=== PATIENT | female | born 1955 | race Caucasian/White ===

== ENCOUNTER → 2017-03-03 | Outpatient (CLI) | payer OTHER ==
--- NOTE | 2017-03-06 08:04 | MM ---
Reason for exam: screening (asymptomatic). Last mammogram was performed 1 year and 1 month ago. History: Patient is postmenopausal. Family history of breast cancer in sister at age 50 and breast cancer in grandmother at age 68. Took estrogen for 10 years beginning at age 37. Physical Findings: A clinical breast exam by your physician is recommended on an annual basis and results should be correlated with mammographic findings. MG Screening Mammo w CAD Bilateral CC and MLO view(s) were taken. Prior study comparison: January 24, 2016, bilateral MG 3d screening mammo w/cad. November 03, 2014, bilateral MG screening mammo w CAD. There are scattered fibroglandular densities. There is no discrete abnormality. No significant changes when compared with prior studies. ASSESSMENT: Negative, BI-RAD 1 RECOMMENDATION: Routine screening mammogram of both breasts in 1 year.
== END | disposition home or self-care (01) ==
LOC: RADMAMWWP 13:41
PROVIDERS: ATTEND Family Medicine
DX: Z12.31 Encounter for screening mammogram for malignant neoplasm of breast (principal)

== ENCOUNTER → 2018-03-18 | Outpatient (CLI) | payer BC ==
--- NOTE | 2018-03-19 11:08 | MM ---
Reason for exam: screening (asymptomatic). Last mammogram was performed 1 year ago. History: Patient is postmenopausal. Family history of breast cancer in sister at age 50 and breast cancer in grandmother at age 68. Took estrogen for 10 years beginning at age 37. Physical Findings: A clinical breast exam by your physician is recommended on an annual basis and results should be correlated with mammographic findings. MG 3D Screening Mammo W/Cad Bilateral CC and MLO view(s) were taken. Prior study comparison: March 03, 2017, bilateral MG screening mammo w CAD. January 24, 2016, bilateral MG 3d screening mammo w/cad. There are scattered fibroglandular densities. There is no discrete abnormality. No significant changes when compared with prior studies. ASSESSMENT: Negative, BI-RAD 1 RECOMMENDATION: Routine screening mammogram of both breasts in 1 year.
== END | disposition home or self-care (01) ==
LOC: RADMAMWWP 15:34
PROVIDERS: ATTEND Family Medicine
DX: Z12.31 Encounter for screening mammogram for malignant neoplasm of breast (principal)
CPT/HCPCS: 77063; 77067

== ENCOUNTER → 2019-04-11 | Outpatient (CLI) | payer BC ==
[2019-04-11 10:50] LABS: Basophils # (A) 0.1 k/uL (0-0.2); Basophils % (A) 1 %; Eosinophils # (A) 0.2 k/uL (0-0.7); Eosinophils % (A) 1 %; HCT 45.5 % (34.0-46.0); HGB 15.1 gm/dL (11.4-16.0); Lymphocytes # (A) 2.2 k/uL (1.0-4.8); Lymphocytes % (A) 19 %; MCH 30.3 pg (25.0-35.0); MCHC 33.1 g/dL (31.0-37.0); MCV 91.7 fL (80.0-100.0); Mean Platelet Volume 6.6; Monocytes # (A) 0.6 k/uL (0-1.0); Monocytes % (A) 5 %; Neutrophils # (A) 8.5 k/uL (1.3-7.7); Neutrophils % (A) 73 %; Platelet Count 236 k/uL (150-450); RBC 4.97 m/uL (3.80-5.40); RDW 12.6 % (11.5-15.5); WBC 11.6 k/uL (3.8-10.6)
[2019-04-11 17:37] LABS: African American GFR (CKD) 68.9 (60.0-200.0); Albumin 4.6 g/dL (3.80-4.90); Albumin/Globulin Ratio 2.3 (1.60-3.17); Anion Gap 5.9 mmol/L (4.00-12.00); Calcium 9.8 mg/dL (8.7-10.3); Carbon Dioxide 30.1 mmol/L (21.6-31.8); Chol/HDL Ratio 5.86; LDL Cholesterol,Calculated 156.4 mg/dL (0.0-131.0); Potassium 4.6 mmol/L (3.5-5.5); Total Bilirubin 0.6 mg/dL (0.3-1.2); Total Protein 6.6 g/dL (6.2-8.2); VLDL Calculation 47.6 mg/dL (5.00-40.00)
[2019-04-11 17:48] LABS: T4, Free (Free Thyroxine) 0.9 ng/dL (0.80-1.80)
[2019-04-11 18:10] LABS: Iron Saturation 28.99 (12.00-45.00)
[2019-04-11 18:18] LABS: Ferritin 90.8 ng/mL (10.0-291.0)
[2019-04-11 18:27] LABS: Folate, Serum 10.3 ng/mL
== END | disposition home or self-care (01) ==
LOC: LABWHC1 09:45
PROVIDERS: ATTEND Family Medicine
DX: E11.3211 Type 2 diabetes mellitus with mild nonproliferative diabetic retinopathy with macular edema, right eye (principal); L65.9 Nonscarring hair loss, unspecified
CPT/HCPCS: 36415; 80053; 80061; 82306; 82607; 82728; 82746; 83540; 83550; 84439; 84443; 85025; 86038

== ENCOUNTER → 2019-05-02 | Outpatient (CLI) | payer BC ==
--- NOTE | 2019-05-02 14:26 | MM ---
Reason for exam: screening (asymptomatic). Last mammogram was performed 1 year and 1 month ago. History: Patient is postmenopausal. Family history of breast cancer in sister at age 50 and breast cancer in grandmother at age 68. Took estrogen for 10 years beginning at age 37. Physical Findings: A clinical breast exam by your physician is recommended on an annual basis and results should be correlated with mammographic findings. MG 3D Screening Mammo W/Cad Bilateral CC and MLO view(s) were taken. Prior study comparison: March 18, 2018, bilateral MG 3d screening mammo w/cad. March 03, 2017, bilateral MG screening mammo w CAD. There are scattered fibroglandular densities. No suspicious abnormality. No significant changes when compared with prior studies. ASSESSMENT: Negative, BI-RAD 1 RECOMMENDATION: Routine screening mammogram of both breasts in 1 year.
== END | disposition home or self-care (01) ==
LOC: RADMAMWWP 12:52
PROVIDERS: ATTEND Family Medicine
DX: Z12.31 Encounter for screening mammogram for malignant neoplasm of breast (principal)
CPT/HCPCS: 77063; 77067

== ENCOUNTER 2020-02-12 15:11 | Emergency (ER) | payer BC, OTHER ==
[2020-02-12 15:23] VITALS: RESP 18; TEMP 97.8
--- NOTE | 2020-02-12 15:57 | ED ---
General Adult HPI - General Chief complaint: Extremity Injury, Lower Stated complaint: Poss blood clot Time Seen by Provider: 02/12/20 15:23 Source: patient, RN notes reviewed Mode of arrival: ambulatory Limitations: no limitations - History of Present Illness Initial comments: Patient is a pleasant [age]-year-old female presenting to the emergency dep artment with concern for possible blood clot. Patient states she struck her left leg on a chair one week ago. Patient has had mild discomfort. Patient states symptoms started to worsen yesterday. Patient has noticed some swelling and tenderness to touch. Patient also noticed some mild redness. No history of similar symptoms previously. No chest pain or dyspnea. - Related Data Home Medications Medication Instructions Recorded Confirmed Calcium Carbonate/Vitamin D3 1 tab PO DAILY 12/01/14 01/31/15 [Calcium 600 + Vit D Tablet] Omeprazole [PriLOSEC] 20 mg PO AC-BRKFST 12/01/14 01/31/15 Aspirin 325 mg PO DAILY 01/31/15 01/31/15 Glucosamine Sulfate 500 mg PO DAILY 01/31/15 01/31/15 Vit A/Vit C/Vit E/Zinc/Copper 1 cap PO DAILY 01/31/15 01/31/15 [ICAPS SOFTGEL] Previous Rx's Medication Instructions Recorded Ciprofloxacin HCl [Cipro] 500 mg PO Q12HR #20 tablet 01/31/15 Phenazopyridine HCl [Pyridium] 100 mg PO TID #6 tab 01/31/15 Cephalexin [Keflex] 500 mg PO TID #21 cap 02/12/20 Allergies Allergy/AdvReac Type Severity Reaction Status Date / Time codeine Allergy N & V. Verified 02/12/20 15:23 SHAKING. Review of Systems ROS Statement: Those systems with pertinent positive or pertinent negative responses have been documented in the HPI. ROS Other: All systems not noted in ROS Statement are negative. Constitutional: Denies: fever Eyes: Denies: eye pain ENT: Denies: ear pain Respiratory: Denies: cough, dyspnea Cardiovascular: Denies: chest pain Endocrine: Denies: fatigue Gastrointestinal: Denies: abdominal pain Genitourinary: Denies: dysuria Musculoskeletal: Denies: back pain Skin: Denies: rash Neurological: Denies: weakness Past Medical History Past Medical History: Diabetes Mellitus, GERD/Reflux History of Any Multi-Drug Resistant Organisms: None Reported Past Surgical History: Back Surgery, Bladder Surgery, Cholecystectomy, Hernia Repair, Hysterectomy, Orthopedic Surgery, Tonsillectomy Additional Past Surgical History / Comment(s): rectal seal Past Psychological History: No Psychological Hx Reported Smoking Status: Current every day smoker Past Alcohol Use History: Occasional Past Drug Use History: None Reported General Exam Limitations: no limitations General appearance: alert, in no apparent distress Head exam: Present: normocephalic Eye exam: Present: normal appearance Neck exam: Present: normal inspection Respiratory exam: Present: normal lung sounds bilaterally Cardiovascular Exam: Present: regular rate, normal rhythm GI/Abdominal exam: Present: soft. Absent: tenderness Extremities exam: Present: other (Left upper lateral calf with area proximally 4 x 4 centimeters of mild swelling and mild erythema. There is moderate tenderness.) Neurological exam: Present: alert Psychiatric exam: Present: normal affect, normal mood Skin exam: Present: erythema Course Vital Signs 02/12/20 02/12/20 02/12/20 15:19 15:22 16:22 Temperature 97.8 F Pulse Rate 75 Respiratory 18 18 18 Rate Blood Pressure 113/72 O2 Sat by Pulse 97 Oximetry 02/12/20 16:52 Temperature Pulse Rate 73 Respiratory 18 Rate Blood Pressure 105/60 O2 Sat by Pulse 95 Oximetry Medical Decision Making - Medical Decision Making Patient reevaluated and updated. - Radiology Data Radiology results: image reviewed (Ultrasound shows no DVT, correlate for superficial phlebitis.) Disposition Clinical Impression: Superficial thrombophlebitis of left leg Disposition: HOME SELF-CARE Condition: Stable Instructions (If sedation given, give patient instructions): Superficial Throm bophlebitis (ED) Additional Instructions: Daily aspirin. Please follow-up with primary care physician in the next couple days for recheck. Prescription sent to your pharmacy. Return for increased pain, swelling, redness, chest pain or difficulty breathing, worsening symptoms or other concerns. Prescriptions: Cephalexin [Keflex] 500 mg PO TID #21 cap Is patient prescribed a controlled substance at d/c from ED?: No Referrals: Dillan Díaz MD [Primary Care Provider] - 1-2 days Time of Disposition: 17:36
--- NOTE | 2020-02-12 16:44 | US ---
EXAMINATION TYPE: US venous doppler duplex LE LT DATE OF EXAM: 02/12/2020 4:17 PM COMPARISON: NONE CLINICAL HISTORY: pain and swelling. Left leg skin redness and swelling over varicose veins anteriorl y just at below knee level and after trauma to this leg 1 week ago; bilateral varicose veins. SIDE PERFORMED: Left TECHNIQUE: The lower extremity deep venous system is examined utilizing real time linear array sonog soumya with graded compression, doppler sonography and color-flow sonography. VESSELS IMAGED: ) Common Femoral Vein Deep Femoral Vein Greater Saphenous Vein * Femoral Vein Popliteal Vein Small Saphenous Vein * Proximal Calf Veins (* superficial vessels) Left Leg: Negative for DVT. Dilated and tortuous superficial veins are noted at patient's area of p ain and skin redness, suggesting superficial phlebitis. These Superficial Veins are patent and compre ss here. IMPRESSION: No evidence of deep vein thrombosis. There are some superficial varicose veins.
[2020-02-12 17:57] VITALS: BP 108/74; PULSE 68
== END 2020-02-12 17:50 | disposition home or self-care (01) ==
LOC: EC 15:11
DX: I80.02 Phlebitis and thrombophlebitis of superficial vessels of left lower extremity (principal); F17.200 Nicotine dependence, unspecified, uncomplicated; E11.9 Type 2 diabetes mellitus without complications; K21.9 Gastro-esophageal reflux disease without esophagitis; Z79.84 Long term (current) use of oral hypoglycemic drugs; Z79.899 Other long term (current) drug therapy; Z88.5 Allergy status to narcotic agent
CPT/HCPCS: 99283

== ENCOUNTER 2024-11-08 21:40 | Inpatient (IN) | payer MEDICARE, OTHER ==
--- NOTE | 2024-11-08 22:17 | ED ---
General Adult HPI - General Chief complaint: Fall Stated complaint: Fall Time Seen by Provider: 11/08/24 21:51 Source: patient, EMS, RN notes reviewed, old records reviewed Mode of arrival: EMS Limitations: no limitations - History of Present Illness Initial comments: 69 old female presents status post slip and fall in the bathtub with left-sided chest wall pain. Patient does believe she lost consciousness. She did not remember hitting her head. No anticoagulation. Her chief and only complaint at this time is left lateral chest wall pain which is severe. She was given morphine by paramedics with minimal improvement. She is having a hard time taking a deep breath secondary to pain. No abdominal pain. No extremity injury. - Related Data Home Medications Medication Instructions Recorded Confirmed Calcium Carbonate/Vitamin D3 1 tab PO DAILY 12/01/14 01/31/15 [Calcium 600 + Vit D Tablet] Omeprazole [PriLOSEC] 20 mg PO AC-BRKFST 12/01/14 01/31/15 Aspirin 325 mg PO DAILY 01/31/15 01/31/15 Glucosamine Sulfate 500 mg PO DAILY 01/31/15 01/31/15 Vit A/Vit C/Vit E/Zinc/Copper 1 cap PO DAILY 01/31/15 01/31/15 [ICAPS SOFTGEL] Previous Rx's Medication Instructions Recorded Ciprofloxacin HCl [Cipro] 500 mg PO Q12HR #20 tablet 01/31/15 Phenazopyridine HCl [Pyridium] 100 mg PO TID #6 tab 01/31/15 Cephalexin [Keflex] 500 mg PO TID #21 cap 02/12/20 Allergies Allergy/AdvReac Type Severity Reaction Status Date / Time codeine Allergy N & V. Verified 11/08/24 21:48 SHAKING. Review of Systems ROS Statement: Those systems with pertinent positive or pertinent negative responses have been documented in the HPI. ROS Other: All systems not noted in ROS Statement are negative. Past Medical History Past Medical History: Diabetes Mellitus, GERD/Reflux History of Any Multi-Drug Resistant Organisms: None Reported Past Surgical History: Back Surgery, Bladder Surgery, Cholecystectomy, Hernia Repair, Hysterectomy, Orthopedic Surgery, Tonsillectomy Additional Past Surgical History / Comment(s): rectal seal Past Psychological History: No Psychological Hx Reported Smoking Status: Current every day smoker Past Alcohol Use History: Occasional Past Drug Use History: None Reported General Exam General appearance: alert, in no apparent distress Head exam: Present: atraumatic, normocephalic Eye exam: Present: normal appearance, PERRL ENT exam: Present: normal exam Neck exam: Present: normal inspection. Absent: tenderness, meningismus Respiratory exam: Present: chest wall tenderness, decreased breath sounds. Absent: respiratory distress Cardiovascular Exam: Present: regular rate, normal rhythm GI/Abdominal exam: Present: soft. Absent: distended, tenderness, guarding Extremities exam: Present: normal inspection, normal capillary refill. Absent: pedal edema, joint swelling, calf tenderness Neurological exam: Present: alert, oriented X3 Psychiatric exam: Present: normal affect, normal mood Skin exam: Present: warm, dry, intact. Absent: cyanosis, diaphoretic Course Vital Signs 11/08/24 21:41 Temperature 98.3 F Pulse Rate 74 Respiratory 18 Rate Blood Pressure 100/67 O2 Sat by Pulse 91 L Oximetry Medical Decision Making - Medical Decision Making Was pt. sent in by a medical professional or institution (, [facility], JITTERBUG OPERATOR, urgent care, hospital, or custodial...) When possible be specific @ -No Did you speak to anyone other than the patient for history (EMS, parent, family, police, friend...)? What history was obtained from this source @ -No Did you review nursing and triage notes (agree or disagree)? Why? @ -I reviewed and agree with nursing and triage notes Were old charts reviewed (outside hosp., previous admission, EMS record, old EKG, old radiological studies, urgent care reports/EKG's, custodial records)? Report findings @ -No old charts were reviewed Differential Diagnosis static injury from fall, left chest wall contusion, rib fracture, pneumothorax EKG interpreted by me (3pts min.). @Sinus rhythm rate of 71, [place] interval 146, QRS duration 92, QTc [address] segment changes. X-rays interpreted by me (1pt min.). @ -X-rays negative for displaced fracture, no pneumothorax. CT interpreted by me (1pt min.). @ -CT showing left posterior rib fracture 9 and 10 U/S interpreted by me (1pt. min.). @ -None done What testing was considered but not performed or refused? (CT, X-rays, U/S, labs)? Why? @ -None What meds were considered but not given or refused? Why? @ -None Did you discuss the management of the patient with other professionals (professionals i.e. , PA, JITTERBUG OPERATOR, lab, RT, psych nurse, social sciences department chair, stained glass window designer, teacher, unclaimed property officer, comp field case manager)? Give summary @ -Dr. Peng Was smoking cessation discussed for >3mins.? @ -No Was critical care preformed (if so, how long)? @ -No Were there social determinants of health that impacted care today? How? (Homelessness, low income, unemployed, alcoholism, drug addiction, transportation, low edu. Level, literacy, decrease access to med. care, [facility], rehab)? @ -No Was there de-escalation of care discussed even if they declined (Discuss DNR or withdrawal of care, Hospice)? DNR status @ -No What co-morbidities impacted this encounter? (DM, HTN, Smoking, COPD, CAD, Cancer, CVA, ARF, Chemo, Hep., AIDS, mental health diagnosis, sleep apnea, morbid obesity)? @Current smoker, asthma Was patient admitted / discharged? Hospital course, mention meds given and route, prescriptions, significant lab abnormalities, going to OR and other pertinent info. @ 69-year-old female presenting after fall in the bathtub with left-sided chest wall pain. Patient has diminished breath sounds bilaterally. Chest x-ray does not show pneumothorax. I did perform CT imaging of the chest abdomen pelvis that showed a displaced rib fracture 9 and 10 posterior left chest wall. Patient is having significant pain requiring multiple doses of IV pain medication and has shallow respiration with an oxygen saturation around 90%. She will be observed for pain control supplemental oxygen. Undiagnosed new problem with uncertain prognosis? @ -No Drug Therapy requiring intensive monitoring for toxicity (Heparin, Nitro, Insulin, Cardizem)? @ -No Were any procedures done? @ -No Diagnosis/symptom? @ -Left-sided rib fracture, intractable pain Acute, or Chronic, or Acute on Chronic? @ -Acute Uncomplicated (without systemic symptoms) or Complicated (systemic symptoms)? @ -Default Side effects of treatment? @ -No Exacerbation, Progression, or Severe Exacerbation? @ -No Poses a threat to life or bodily function? How? (Chest pain, USA, DC, pneumonia, PE, COPD, DKA, ARF, appy, cholecystitis, CVA, Diverticulitis, Homicidal, Suicidal, threat to staff... and all critical care pts) @ -Yes, hypoxia - Lab Data Result diagrams: 11/08/24 22:13 11/08/24 22:13 Lab Results 11/08/24 11/08/24 11/08/24 Range/Units 22:13 22:13 22:13 WBC 14.05 H (4.50-10.00) 10*3/uL RBC 4.68 (4.10-5.20) 10*6/uL Hgb 15.0 (12.0-15.0) g/dL Hct 43.7 (37.2-46.3) % MCV 93.4 (80.0-97.0) fL MCH 32.1 H (27.0-32.0) pg MCHC 34.3 (32.0-37.0) g/dL Plt Count 225 (140-440) 10*3/uL MPV 10.7 (9.5-12.2) fL Immature Gran % (Auto) 0.4 % Neutrophils % 71.8 % Lymphocytes % 19.4 % Monocytes % 7.0 % Eosinophils % 0.8 % Basophils % 0.6 % Immature Gran # 0.06 H (0.00-0.04) 10*3/uL Neutrophils # 10.09 H (1.80-7.70) 10*3/uL Lymphocytes # 2.72 (0.90-5.00) 10*3/uL Monocytes # 0.99 (0.20-1.00) 10*3/uL Eosinophils # 0.11 (0.04-0.35) 10*3/uL Basophils # 0.08 (0.00-0.10) 10*3/uL PT 10.9 (10.0-12.5) sec INR 1.0 (<1.2) APTT 22.5 (22.0-30.0) sec Sodium 138 (137-145) mmol/L Potassium 4.0 (3.5-5.1) mmol/L Chloride 103 (98-107) mmol/L Carbon Dioxide 26 (22-30) mmol/L Anion Gap 9 mmol/L BUN 15 (7-17) mg/dL Creatinine 0.74 (0.52-1.04) mg/dL Est GFR (CKD-EPI)AfAm >90 (>60 ml/min/1.73 sqM) Est GFR (CKD-EPI)NonAf 84 (>60 ml/min/1.73 sqM) Glucose 171 H (74-99) mg/dL Calcium 9.7 (8.4-10.2) mg/dL Total Bilirubin 0.7 (0.2-1.3) mg/dL AST 56 H (14-36) U/L ALT 47 H (4-34) U/L Alkaline Phosphatase 64 (38-126) U/L Total Protein 7.3 (6.3-8.2) g/dL Albumin 4.5 (3.5-5.0) g/dL Disposition Clinical Impression: Fall, Rib fractures Disposition: ADMITTED IP TO THIS HOSP Condition: Stable Is patient prescribed a controlled substance at d/c from ED?: No Time of Disposition: 00:53
[2024-11-08 22:41] LABS: Basophils # (A) 0.08 10*3/uL (0.00-0.10); Basophils % (A) 0.6 %; Eosinophils # (A) 0.11 10*3/uL (0.04-0.35); Eosinophils % (A) 0.8 %; HCT 43.7 % (37.2-46.3); Lymphocytes # (A) 2.72 10*3/uL (0.90-5.00); Lymphocytes % (A) 19.4 %; MCH 32.1 pg (27.0-32.0); MCHC 34.3 g/dL (32.0-37.0); MCV 93.4 fL (80.0-97.0); Mean Platelet Volume 10.7 fL (9.5-12.2); Monocytes # (A) 0.99 10*3/uL (0.20-1.00); Neutrophils # (A) 10.09 10*3/uL (1.80-7.70); Neutrophils % (A) 71.8 %; Platelet Count 225 10*3/uL (140-440); RBC 4.68 10*6/uL (4.10-5.20); RDW 12.2 % (11.5-14.5); WBC 14.05 10*3/uL (4.50-10.00)
[2024-11-08 22:55] LABS: ALT 47 U/L (4-34); AST 56 U/L (14-36); African American GFR (CKD) >90 (>60 ml/min/1.73 sqM); Albumin 4.5 g/dL (3.5-5.0); Alkaline Phosphatase 64 U/L (38-126); Anion Gap 9 mmol/L; Blood Urea Nitrogen 15 mg/dL (7-17); Calcium 9.7 mg/dL (8.4-10.2); Carbon Dioxide 26 mmol/L (22-30); Chloride 103 mmol/L (98-107); Glucose 171 mg/dL (74-99); Non-African American GFR(CKD) 84 (>60 ml/min/1.73 sqM); Sodium 138 mmol/L (137-145); Total Bilirubin 0.7 mg/dL (0.2-1.3); Total Protein 7.3 g/dL (6.3-8.2)
[2024-11-08 22:57] LABS: Partial Thromboplastin Time 22.5 sec (22.0-30.0); Prothrombin Time 10.9 sec (10.0-12.5)
[2024-11-08] MEDS: HYDROmorphone 0.5 MG/0.5 ML SYRINGE IVP STA (23:02)
[2024-11-09] MEDS: HYDROmorphone 0.5 MG/0.5 ML SYRINGE IVP STA (00:41)
--- NOTE | 2024-11-09 00:43 | CT ---
857 images EXAM: CT Chest Without Intravenous Contrast CLINICAL HISTORY: ITS.REASON CT Reason: fall/pain in left chest TECHNIQUE: Axial computed tomography images of the chest without intravenous contrast. Coronal and sagittal reconstructions are performed. CTDI is 4. 2 mGy and DLP is 317.5 mGy-cm. This CT exam was performed using one or more of the following dose reduction techniques: automated exposure control, adjustment of the mA and/or kV according to patient size, and/or use of iterative reconstruction technique. COMPARISON: No relevant prior studies available. FINDINGS: Lungs: Small amount of peripheral atelectasis bilaterally. No mass. Pleural space: Unremarkable. No pneumothorax. No significant effusion. Heart: Unremarkable. No cardiomegaly. No significant pericardial effusion. No significant coronary artery calcifications. Bones/joints: Fracture of posterior left rib #9 and 10, with maximal 2 mm displacement. ACDF of lower cervical spine. Mild lower thoracic scoliosis convex to the right. Osteopenia. Mild degenerative changes. Soft tissues: Unremarkable. Vasculature: Unremarkable. No thoracic aortic aneurysm. Lymph nodes: Unremarkable. No enlarged lymph nodes. IMPRESSION: Left lower rib fractures. EXAM: CT Abdomen and Pelvis Without Intravenous Contrast CLINICAL HISTORY: ITS.REASON CT Reason: fall/pain in left chest TECHNIQUE: Axial computed tomography images of the abdomen and pelvis without intravenous contrast. Coronal and sagittal reconstructions are performed. CTDI is 4.2 mGy and DLP is 317.5 mGy-cm. This CT exam was performed using one or more of the following dose reduction techniques: automated exposure control, adjustment of the mA and/or kV according to patient size, and/or use of iterative reconstruction technique. COMPARISON: No relevant prior studies available. FINDINGS: ABDOMEN: Liver: Unremarkable. Gallbladder and bile ducts: Cholecystectomy clips. No ductal dilation. Pancreas: Unremarkable. No ductal dilation. Spleen: Unremarkable. No splenomegaly. Adrenals: Unremarkable. No mass. Kidneys and ureters: Unremarkable. No obstructing stones. No hydronephrosis. Stomach and bowel: Moderate colonic diverticulosis. No obstruction. No mucosal thickening. PELVIS: Appendix: No findings to suggest acute appendicitis. Bladder: Unremarkable. No stones. Reproductive: Unremarkable as visualized. ABDOMEN and PELVIS: Intraperitoneal space: Unremarkable. No free air. No significant fluid collection. Bones/joints: Osteopenia. Moderate degenerative changes. Soft tissues: Unremarkable. Vasculature: Unremarkable. No abdominal aortic aneurysm. Lymph nodes: Unremarkable. No enlarged lymph nodes. IMPRESSION: No acute findings in the abdomen or pelvis.
[2024-11-09] MEDS ORDERED: NALOXONE 0.4 MG/ML 1 ML VIAL IV PRN (00:48)
--- NOTE | 2024-11-09 00:52 | XR ---
EXAM: XR Left Ribs, 2 Views CLINICAL HISTORY: fall TECHNIQUE: Frontal and oblique views of the left ribs. COMPARISON: No relevant prior studies available. FINDINGS: Lungs: Unremarkable as visualized. No consolidation. Pleural space: Unremarkable. No pneumothorax. Bones/joints: Fracture of posterior left rib #9 and 10, with maximal 2 mm displacement. ACDF of lower cervical spine. Mild lower thoracic scoliosis convex to the right. Osteopenia. Mild degenerative changes. IMPRESSION: Fracture of posterior left rib #9 and 10, better seen on CT chest from today.
[2024-11-09] MEDS: HYDROmorphone 0.5 MG/0.5 ML SYRINGE IVP PRN (02:32)
[2024-11-09] MEDS: IPRATROPIUM-ALBUTEROL 3 ML NEB INHALATION SCH (05:28)
--- NOTE | 2024-11-09 05:48 | P.CNPUL ---
History of Present Illness Consult date: 11/09/24 Requesting physician: Feroz Yanez Reason for consult: other (Rib fractures) Chief complaint: Left chest pain following fall History of present illness: Patient is a 69-year-old female brought in by EMS following a slip and fall in the bathtub. She was giving her granddaughter a bath. Landed on her left chest. Denies head trauma. Denies anticoagulation. Endorses lateral chest tenderness/pain with moving or deep breathing. CT of the chest, abdomen, pelvis remarkable for minimally displaced fractures involving posterior left rib 9 and 10. No pneumothoraces, pleural effusions, contusions. Minimal bilateral peripheral atelectasis. Patient currently being evaluated in the emergency department. Having trouble taking deep breaths secondary to pain. Has received a dose of Dilaudid. Toradol is also ordered. On 2 L/min nasal cannula. SpO2 is 98% on monitor. Respiratory therapist showing her how to use her incentive spirometer. She denies any other injuries. Vital signs are stable. Review of Systems REVIEW OF SYSTEMS: CONSTITUTIONAL: Denies any recent significant weight loss or weight gain. EYES: Denies change in vision. EARS, NOSE, MOUTH, THROAT: Denies headaches, denies sore throat. CARDIOVASCULAR: Denies palpitations, lower extremity edema, syncopal episodes. RESPIRATORY: Positive for shortness of breath. denies cough, congestion or hemoptysis. GASTROINTESTINAL: Denies change in appetite, abdominal pain, nausea and vomiting, or diarrhea GENITOURINARY: Denies hematuria, denies infections. MUSKULOSKELETAL: Endorses left lateral chest pain, stabbing, rated 10 out of 10, with coughing or deep breathing INTEGUMENTARY: Denies rash, denies eczema. NEUROLOGICAL: Denies recent memory loss, no recent seizure activity. PSYCHIATRIC: Denies anxiety, denies depression. HEMATOLOGIC/LYMPHATIC: Denies anemia, denies enlarged lymph node Past Medical History Past Medical History: Diabetes Mellitus, GERD/Reflux History of Any Multi-Drug Resistant Organisms: None Reported Past Surgical History: Back Surgery, Bladder Surgery, Cholecystectomy, Hernia Repair, Hysterectomy, Orthopedic Surgery, Tonsillectomy Additional Past Surgical History / Comment(s): rectal seal Past Psychological History: No Psychological Hx Reported Smoking Status: Current every day smoker Past Alcohol Use History: Occasional Past Drug Use History: None Reported Medications and Allergies Home Medications Medication Instructions Recorded Confirmed Type Omeprazole [PriLOSEC] 20 mg PO DAILY 12/01/14 11/09/24 History Empagliflozin [Jardiance] 25 mg PO DAILY 11/09/24 11/09/24 History Estradiol Cream [Estrace Cream 1 gm VAGINAL DIRECTED 11/09/24 11/09/24 History 0.01%] FLUoxetine HCL [Sarafem] 20 mg PO DAILY 11/09/24 11/09/24 History Loratadine [Claritin] 10 mg PO HS 11/09/24 11/09/24 History Montelukast [Singulair] 10 mg PO HS 11/09/24 11/09/24 History Multivitamins, Thera [Multivitamin 1 tab PO DAILY 11/09/24 11/09/24 History (formulary)] [place]-3/Dha/Epa/Fish Oil [Fish Oil 1 cap PO DAILY 11/09/24 11/09/24 History 1,000 mg Softgel] Semaglutide [Ozempic] 2 mg SQ FR 11/09/24 11/09/24 History Allergies Allergy/AdvReac Type Severity Reaction Status Date / Time codeine Allergy N & V. Verified 11/09/24 07:27 SHAKING. Physical Exam Vitals: Vital Signs Temp Pulse Resp BP Pulse Ox 11/09/24 02:36 65 20 101/68 98 11/08/24 21:41 98.3 F 74 18 100/67 91 L Intake and Output 11/08/24 11/08/24 11/09/24 14:59 22:59 06:59 Other: Weight 78.018 kg GENERAL EXAM: Alert, 69-year-old female, not in respiratory distress. HEAD: Normocephalic and atraumatic EYES: Normal reaction of pupils, equal size. NOSE: Clear with pink turbinates. THROAT: No erythema or exudates. NECK: No masses, no JVD. CHEST: No chest wall deformity. No crepitus, subcutaneous emphysema. LUNGS: Equal air entry with no crackles, wheeze, rhonchi or dullness. 2 L/min nasal cannula. No conversational dyspnea or accessory muscle use. Shallow breathing CVS: S1 and S2 normal with no audible murmur, regular rhythm. No extra heart sounds ABDOMEN: No hepatosplenomegaly, active bowel sounds, no guarding or rigidity. SPINE: No scoliosis or deformity SKIN: No rashes CENTRAL NERVOUS SYSTEM: No focal deficits, tone is normal in all 4 extremities. EXTREMITIES: There is no peripheral edema, clubbing, or cyanosis. Peripheral pulses are intact. Results - Laboratory Findings CBC and BMP: 11/08/24 22:13 11/08/24 22:13 PT/INR, D-dimer PT 10.9 sec (10.0-12.5) 11/08/24 22:13 INR 1.0 (<1.2) 11/08/24 22:13 Abnormal lab findings: Abnormal Labs 11/08/24 11/08/24 22:13 22:13 WBC 14.05 H MCH 32.1 H Immature Gran # 0.06 H Neutrophils # 10.09 H Glucose 171 H AST 56 H ALT 47 H - Diagnostic Findings Chest x-ray: image reviewed CT scan - chest: image reviewed Assessment and Plan Assessment: Mechanical fall Minimally displaced rib fractures involving posterior left rib 9 and 10. No pneumothoraces, pleural effusions, contusions. Minimal bilateral peripheral atelectasis. Acute dyspnea, secondary to above Current ongoing tobacco smoker Plan: Patient admitted for pain control Currently, receiving combination of Dilaudid, Toradol, and Tylenol as needed Chest CT reviewed, no pneumothoraces, pleural effusions, or pulmonary contusions. Labs noted Encourage pulmonary toileting/incentive spirometer hourly awake We will continue to follow I have personally seen and examined the patient, performed the documentation and the assessment and plan as written. Number of minutes spent on the visit:20 This is a joint evaluation that was done along with the nurse practitioner. This evaluation was done in 32 minutes. This is a pleasant 69-year-old female patient who had a fall and she sustained left-sided rib fracture involving the 9th and 10th rib on the left. The patient has skeletal chest wall pain. She is currently on Dilaudid and Toradol and Tylenol combination. No evidence of any pulmonary contusion. No hemothorax. No pneumothorax. She is currently on oxygen at 3 L with a pulse ox of 94%. She was provided incentive spirometer. Will continue pulmonary toileting. Pain control. Will continue to follow. Blood work was reviewed. No significant abnormalities noted. Chest x-ray and CAT scan of the chest was also reviewed. Time with Patient: Greater than 30
[2024-11-09] MEDS: ACETAMINOPHEN TAB 325 MG TAB PO PRN (08:30)
[2024-11-09] MEDS: KETOROLAC 15 MG/ML 1 ML VIAL IVP PRN (08:30)
[2024-11-09] MEDS: methocarbamoL 500 MG TAB PO SCH (08:31)
[2024-11-09] MEDS: SODIUM CHLORIDE 0.9% 1,000 ML IV SCH (10:29)
[2024-11-09] MEDS: NICOTINE 14MG/24HR PATCH TRANSDERM SCH (10:29)
[2024-11-09] MEDS: LIDOCAINE 4% PATCH TOPICAL SCH (10:29)
[2024-11-09] MEDS: FLUoxetine HCL 20 MG CAP PO SCH (10:30)
[2024-11-09] MEDS: PANTOPRAZOLE 40 MG TABLET PO SCH (10:30)
--- NOTE | 2024-11-09 11:47 | P.GSHP ---
History of Present Illness H&P Date: 11/09/24 CHIEF COMPLAINT: Fall HISTORY OF PRESENT ILLNESS: This is a 69-year-old female who presents to the ER after a fall in her bathtub. Patient hit the left side of her chest against the side of the tub. She does report loss of consciousness. She does not remember hitting her head. She is not a coagulation. She does complain of left chest wall pain. CT scan of chest abdomen pelvis were completed showed evidence of fracture of posterior left rib #9 and 10 with maximal 2 mm displacement. She is on 4 L oxygen satting at 95%. She is hypotensive. Fluids were started by pulmonary service. Patient has been admitted to trauma service. Patient is a smoker. PAST MEDICAL HISTORY: See below PAST SURGICAL HISTORY: See below MEDICATIONS: See below ALLERGIES: See below SOCIAL HISTORY: No illicit drug use. Daily nicotine use REVIEW OF SYSTEMS: CONSTITUTIONAL: Denies fever or chills. HEENT: Denies blurred vision, vision changes, or eye pain. Denies hemoptysis CARDIOVASCULAR: Denies chest pain or pressure. RESPIRATORY: No shortness of breath. GASTROINTESTINAL: See HPI for pertinent findings HEMATOLOGIC: Denies bleeding disorders. GENITOURINARY: Denies any blood in urine or increased urinary frequency. SKIN: Denies pruitis. Denies rash. PHYSICAL EXAM: VITAL SIGNS: Reviewed GENERAL: Well-developed in no acute distress. HEENT: No sclera icterus. Extraocular movements grossly intact. Moist buccal mucosa. Head is atraumatic, normocephalic. No nasal drainage. CHEST: No use of assessory muscles. No bruising noted on the left lateral chest rib cage. Tenderness palpation left lateral side of chest ABDOMEN: Soft. Nondistended. Nontender NEUROLOGIC: Alert and oriented. Cranial nerves II through XII grossly intact. LABORATORY DATA: WBC 14.05 Hgb 15 platelets 225 INR 1.0 Sodium 138 potassium 4.0 BUN 15 creatinine 0.74 Glucose 171 Total bilirubin 0.7 AST 56 ALT 47 alk phos 64 IMAGING: CT scan chest abdomen pelvis reports fracture posterior left rib #9 and 10 with maximal 2 mm displacement. No acute findings in the abdomen or pelvis. ASSESSMENT: 1. Mechanical fall with trauma to the left rib cage 2. Fracture Posterior left rib #9 and 10 due to fall PLAN: - Continue pain management. Oxycodone and Robaxin added as needed for pain Lidoderm patch also added for pain control. - Consult placed for pain management - Consult placed for pulmonary service - Consult medicine service for medical management - Encourage patient to use incentive spirometer - Encourage patient to increase activity level - Continue to monitor O2 needs - Agree with IV fluids - Follow-up on labs in a.m. -Follow-up on repeat x-ray in a.m. - GI prophylaxis Protonix and DVT prophylaxis Lovenox Physician Hse Specialist note has been reviewed by physician. Signing provider agrees with the documented findings, assessment, and plan of care. Past Medical History Past Medical History: Diabetes Mellitus, GERD/Reflux History of Any Multi-Drug Resistant Organisms: None Reported Past Surgical History: Back Surgery, Bladder Surgery, Cholecystectomy, Hernia Repair, Hysterectomy, Orthopedic Surgery, Tonsillectomy Additional Past Surgical History / Comment(s): rectal seal Past Psychological History: No Psychological Hx Reported Smoking Status: Current every day smoker Past Alcohol Use History: Occasional Past Drug Use History: None Reported Medications and Allergies Home Medications Medication Instructions Recorded Confirmed Type Omeprazole [PriLOSEC] 20 mg PO DAILY 12/01/14 11/09/24 History Empagliflozin [Jardiance] 25 mg PO DAILY 11/09/24 11/09/24 History Estradiol Cream [Estrace Cream 1 gm VAGINAL DIRECTED 11/09/24 11/09/24 History 0.01%] FLUoxetine HCL [Sarafem] 20 mg PO DAILY 11/09/24 11/09/24 History Loratadine [Claritin] 10 mg PO HS 11/09/24 11/09/24 History Montelukast [Singulair] 10 mg PO HS 11/09/24 11/09/24 History Multivitamins, Thera [Multivitamin 1 tab PO DAILY 11/09/24 11/09/24 History (formulary)] [place]-3/Dha/Epa/Fish Oil [Fish Oil 1 cap PO DAILY 11/09/24 11/09/24 History 1,000 mg Softgel] Semaglutide [Ozempic] 2 mg SQ FR 11/09/24 11/09/24 History Allergies Allergy/AdvReac Type Severity Reaction Status Date / Time codeine Allergy N & V. Verified 11/09/24 07:27 SHAKING. Surgical - Exam Osteopathic Statement: *. No significant issues noted on an osteopathic structu ral exam other than those noted in the History and Physical/Consult. Vital Signs Temp Pulse Resp BP Pulse Ox 98.3 F 74 18 100/67 91 L 11/08/24 21:41 11/08/24 21:41 11/08/24 21:41 11/08/24 21:41 11/08/24 21:41 Results - Labs 11/08/24 22:13 11/08/24 22:13 Abnormal Lab Results - Last 24 Hours (Table) 11/08/24 11/08/24 Range/Units 22:13 22:13 WBC 14.05 H (4.50-10.00) 10*3/uL MCH 32.1 H (27.0-32.0) pg Immature Gran # 0.06 H (0.00-0.04) 10*3/uL Neutrophils # 10.09 H (1.80-7.70) 10*3/uL Glucose 171 H (74-99) mg/dL AST 56 H (14-36) U/L ALT 47 H (4-34) U/L Diabetes panel 11/08/24 Range/Units 22:13 Sodium 138 (137-145) mmol/L Potassium 4.0 (3.5-5.1) mmol/L Chloride 103 (98-107) mmol/L Carbon Dioxide 26 (22-30) mmol/L BUN 15 (7-17) mg/dL Creatinine 0.74 (0.52-1.04) mg/dL Glucose 171 H (74-99) mg/dL Calcium 9.7 (8.4-10.2) mg/dL AST 56 H (14-36) U/L ALT 47 H (4-34) U/L Alkaline Phosphatase 64 (38-126) U/L Total Protein 7.3 (6.3-8.2) g/dL Albumin 4.5 (3.5-5.0) g/dL Calcium panel 11/08/24 Range/Units 22:13 Calcium 9.7 (8.4-10.2) mg/dL Albumin 4.5 (3.5-5.0) g/dL Pituitary panel 11/08/24 Range/Units 22:13 Sodium 138 (137-145) mmol/L Potassium 4.0 (3.5-5.1) mmol/L Chloride 103 (98-107) mmol/L Carbon Dioxide 26 (22-30) mmol/L BUN 15 (7-17) mg/dL Creatinine 0.74 (0.52-1.04) mg/dL Glucose 171 H (74-99) mg/dL Calcium 9.7 (8.4-10.2) mg/dL Adrenal panel 11/08/24 Range/Units 22:13 Sodium 138 (137-145) mmol/L Potassium 4.0 (3.5-5.1) mmol/L Chloride 103 (98-107) mmol/L Carbon Dioxide 26 (22-30) mmol/L BUN 15 (7-17) mg/dL Creatinine 0.74 (0.52-1.04) mg/dL Glucose 171 H (74-99) mg/dL Calcium 9.7 (8.4-10.2) mg/dL Total Bilirubin 0.7 (0.2-1.3) mg/dL AST 56 H (14-36) U/L ALT 47 H (4-34) U/L Alkaline Phosphatase 64 (38-126) U/L Total Protein 7.3 (6.3-8.2) g/dL Albumin 4.5 (3.5-5.0) g/dL Assessment and Plan Assessment: 69 yo female w/ mechanical fall multiple rib fractures, pain control hx of copd, pulm toilet, follow up pulm recs consult medicine borderline hypotenstion, x 1 500 bolus given Time with Patient: Less than 30
[2024-11-09] MEDS ORDERED: DEXTROSE 50% SYRINGE 50 ML IVP PRN ×2 (13:33)
--- NOTE | 2024-11-09 13:35 | P.CONS ---
History of Present Illness - Reason for Consult Consult date: 11/09/24 - History of Present Illness 69 year old F with PMH of Asthma/COPD, 43 pack year smoking history, seasonal allergies, diabetes mellitus, depression, GERD presents to the ED after a mechanical fall. Patient reports bathing her granddaughter, when she stood up to grab soap, she lost her footing landing on her left side. She immediately experienced 20/10 pain which resulted in a syncopal episode. Pain is worse with movement and deep inspiration. Reports SOB as a result of the pain. She denies any chest pain, dizziness, palpitations, fever or chills, cough, nausea or vomiting, changes in urination or bowel habits. No changes in appetite or weight. In the ED he underwent extensive evaluation. BP 100/67, HR 74, T 98.3F, RR 18, 91% on RA. Labs significant for WBC 14.05, glu 171, AST 56, ALT 47. EKG shows NSR. CT chest/abdomen/pelvis confirmed posterior left rib 9th and 10th fracture with 2 mm displacement. Patient is admitted to surgery with medicine on consult. General: mild toxic, no distress, appears at stated age Derm: warm, dry Head: atraumatic, normocephalic, symmetric Eyes: EOMI, no lid lag, anicteric sclera Mouth: no lip lesion, mucus membranes moist Cardiovascular: S1S2 tachy, no murmur Lungs: Decreased BS bilaterally, no rhonchi, no rales , no accessory muscle use Ext: no gross muscle atrophy, no edema, no contractures Neuro: no focal neuro deficits Psych: Alert and oriented. Based on my assessment of this patient, this patient meets a high complexity level of care. Acute hypoxic respiratory failure secondary to 9th and 10th posterior left rib fracture: Pain management with Dilaudid 0.5 mg IV Q3H PRN, Toradol 15 mg IV Q6H PRN, Lidocaine patch, Robaxin 500 mg PO TID PRN, Oxy 5 mg PO Q6H PRN. Pain management consulted. Telemetry monitoring. Fall precautions. PT and OT consult. Encourage IS. Pulmonary and surgery on board. SIRS likely related to above Transaminitis: Unknown etiology. Monitor. Asthma/COPD not in acute exacerbation: DuoNeb Q4H PRN. 43 pack year smoking history: Nicotine patch 14 mg daily. Seasonal allergies: Singulair 10 mg PO QHS. Claritin 10 mg PO QD. Diabetes mellitus: ISS with Accuchecks ACHS along with hypoglycemic precautions. Obtain A1c. Depression: Fluoxetine 20 mg PO QD. GERD: Protonix 40 mg PO QD. CODE STATUS: FULL CODE DVT Prophylaxis: Lovenox. GI Prophylaxis: Protonix PO Designated medical POA if patient is not able to make medical decisions for the mselves: I have reviewed the following [place] consultant notes: Surgery, Pulm. I have reviewed the results of the following tests: As above. I have ordered the following tests: As above. I have discussed the care of this patient with the following independent historian: FELICITAS. I have independently interpreted the following test below: EKG. I have discussed the management of this patient with the following physician: Past Medical History Past Medical History: Diabetes Mellitus, GERD/Reflux History of Any Multi-Drug Resistant Organisms: None Reported Past Surgical History: Back Surgery, Bladder Surgery, Cholecystectomy, Hernia Repair, Hysterectomy, Orthopedic Surgery, Tonsillectomy Additional Past Surgical History / Comment(s): rectal seal Past Psychological History: No Psychological Hx Reported Smoking Status: Current every day smoker Past Alcohol Use History: Occasional Past Drug Use History: None Reported Medications and Allergies Home Medications Medication Instructions Recorded Confirmed Type Omeprazole [PriLOSEC] 20 mg PO DAILY 12/01/14 11/09/24 History Empagliflozin [Jardiance] 25 mg PO DAILY 11/09/24 11/09/24 History Estradiol Cream [Estrace Cream 1 gm VAGINAL DIRECTED 11/09/24 11/09/24 History 0.01%] FLUoxetine HCL [Sarafem] 20 mg PO DAILY 11/09/24 11/09/24 History Loratadine [Claritin] 10 mg PO HS 11/09/24 11/09/24 History Montelukast [Singulair] 10 mg PO HS 11/09/24 11/09/24 History Multivitamins, Thera [Multivitamin 1 tab PO DAILY 11/09/24 11/09/24 History (formulary)] [place]-3/Dha/Epa/Fish Oil [Fish Oil 1 cap PO DAILY 11/09/24 11/09/24 History 1,000 mg Softgel] Semaglutide [Ozempic] 2 mg SQ FR 11/09/24 11/09/24 History Allergies Allergy/AdvReac Type Severity Reaction Status Date / Time codeine Allergy N & V. Verified 11/09/24 07:27 SHAKING. Physical Exam Vitals: Vital Signs Temp Pulse Resp BP BP Pulse Ox 11/09/24 11:45 70 11/09/24 11:36 68 11/09/24 10:07 86/56 11/09/24 09:56 69 20 89/59 95 11/09/24 08:17 66 11/09/24 08:07 62 11/09/24 05:37 67 11/09/24 05:30 64 11/09/24 05:00 101/61 97 11/09/24 04:00 64 18 90/58 11/09/24 02:36 65 20 101/68 98 11/08/24 21:41 98.3 F 74 18 100/67 91 L Intake and Output 11/08/24 11/09/24 11/09/24 22:59 06:59 14:59 Other: Weight 78.018 kg Results CBC & Chem 7: 11/08/24 22:13 11/08/24 22:13 Labs: Abnormal Lab Results - Last 24 Hours (Table) 11/08/24 11/08/24 Range/Units 22:13 22:13 WBC 14.05 H (4.50-10.00) 10*3/uL MCH 32.1 H (27.0-32.0) pg Immature Gran # 0.06 H (0.00-0.04) 10*3/uL Neutrophils # 10.09 H (1.80-7.70) 10*3/uL Glucose 171 H (74-99) mg/dL AST 56 H (14-36) U/L ALT 47 H (4-34) U/L
[2024-11-09] MEDS: ENOXAPARIN 30 MG/0.3 ML SYRINGE SQ SCH (15:04)
[2024-11-09] MEDS: SODIUM CHLORIDE 0.9% 500 ML 500 ML IV ONE (15:04)
--- NOTE | 2024-11-09 15:26 | P.PAINPG ---
Objective - Vital Signs Vital signs: Vital Signs Temp 98.3 F 11/08/24 21:41 Pulse 62 11/09/24 08:07 Resp 18 11/09/24 04:00 BP 101/61 11/09/24 05:00 Pulse Ox 97 11/09/24 05:00 FiO2 Intake & Output 11/08/24 11/09/24 11/09/24 18:59 06:59 18:59 Weight 78.018 kg - Labs CBC & Chem 7: 11/08/24 22:13 11/08/24 22:13 Labs: Abnormal Lab Results - Last 24 Hours (Table) 11/08/24 11/08/24 Range/Units 22:13 22:13 WBC 14.05 H (4.50-10.00) 10*3/uL MCH 32.1 H (27.0-32.0) pg Immature Gran # 0.06 H (0.00-0.04) 10*3/uL Neutrophils # 10.09 H (1.80-7.70) 10*3/uL Glucose 171 H (74-99) mg/dL AST 56 H (14-36) U/L ALT 47 H (4-34) U/L PQRS Measure Charge Sheet Comment: HISTORY OF PRESENT ILLNESS: A 69 yr old inpatient female as a referral from Dr Yanez presents today w severe acute L chest wall pain secondary to slip & fall in bathtub x 1 day for evaluation. Pt states pain level is provoked at 10 /10 in intensity, constant, localized in the L side of chest, sharp in character without shooting pain. Pain is provoked by breathing and any movement. Pain is alleviated by medications, repositioning and rest . PMH: OA, NIDDM II, GERD, OP PSH: Back Surgery, Bladder Surgery, Cholecystectomy, Hernia Repair, Rectocoele, Hysterectomy, Orthopedic Surgery, Tonsillectomy SH: Daily tobacco use, No ETOH use, No illicit drug use FH: Non contributory All: See list Medications include Dilaudid mg IVP q3h prn, Oxycodone IR 5mg q6h prn, Toradol mg/mL q6h prn, Tyl 650mg q6h prn, Lidoderm 4% QD REVIEW OF ORGAN SYSTEMS: CONSTITUTIONAL: No fevers or chills. No recent weight loss. NEUROLOGICAL: + numbness and tingling along the distal extremities. No seizure disorders or headaches. MUSCULOSKELETAL: + pain PSYCHIATRIC: Denies current depression or suicidal thoughts. Physical Examinations : Constitutional : Cooperative , not in acute distress . Neurologic : Cranial nerve II to XII intact. No focal neurological deficits. Psychiatric : alert & oriented x 3. Matching mood & appropriate affect. Judgment & insight intact. Musculoskeletal : +Diffuse L lateroposterior chest wall TTP Cervical Spine Motor strength in the deltoid and biceps: Normal right side. Normal Left side Motor strength biceps and the wrist extensors: Normal right side . Normal left side Motor strength in the triceps muscle: Normal right side. Normal left side Deep tendon reflexes: Normal at the biceps. Normal at Brachioradialis. Normal at triceps Vertebral body tenderness to deep palpation over Cervical facet loading test: positive bilaterally Spurling test: positive bilaterally Neck distraction test: positive bilaterally Bayron sign: positive bilaterally Lumbar spine Motor strength lower extremities ,thigh and legs 5/5 Right side , 5/5 Left side Deep tendon reflexes : Normal Knee Jerk. Normal Ankle Jerk Vertebral body tenderness over Paredes Test positive Lumbar facet Loading Test: positive Right / positive Left Range of motion of the lumbar spine Flexion 30 degrees, extension 10 degrees Straight Leg Raise test: Left/ Right positive at degrees Aurelio test: positive right / positive left. Severe tenderness over the Sacroiliac joint on the Right / Left sides Gaenslen test: positive bilaterally Seated flexion test: positive bilaterally. Sacral spine : Severe tenderness over the Sacroiliac joint: right side / left side Range of motion: Flexion of the lumbar spine <60 degrees Range of motion: Extension of the lumbar spine <20 degrees Gaenslen's Test positive Aurelio test: positive right side / left side Thigh Thrust Test Sacral Thrust Test Imaging: CXR from 11/09/24 reviewed Assessment/ Plan : L 9th & 10th rib fractures Recommendation of L paramedian MELISA [id number] #1. Risks, benefits of procedure discussed and patient verbalized understanding. Protocol for discontinuation/ continuation of medications malick procedure discussed w nursing. Continue current pain management medications. All questions answered. I have spent greater than 30 minutes on patient care today. Dr Villegas was available by phone for the evaluation of this patient. The time was used to review the medical records including relevant urine studies and Prescription history (MAPs), review of the available imaging, evaluation and examination of the patient, coordination of care with the medical staff and if applicable referring physicians, as well as creation of the medical record PQRS Narrative: Smoking Status Never smoker Blood Pressure [Right Arm 101/61 Supine] Blood Pressure 90/58 Pain Intensity 10 Pain Scale Used Numeric (1 - 10) Scale Used Numeric (1 - 10) Home Medications: Ambulatory Orders Omeprazole [PriLOSEC] 20 mg PO DAILY 12/01/14 Empagliflozin [Jardiance] 25 mg PO DAILY 11/09/24 Estradiol Cream [Estrace Cream 0.01%] 1 gm VAGINAL DIRECTED 11/09/24 FLUoxetine HCL [Sarafem] 20 mg PO DAILY 11/09/24 Loratadine [Claritin] 10 mg PO HS 11/09/24 Montelukast [Singulair] 10 mg PO HS 11/09/24 Multivitamins, Thera [Multivitamin (formulary)] 1 tab PO DAILY 11/09/24 [place]-3/Dha/Epa/Fish Oil [Fish Oil 1,000 mg Softgel] 1 cap PO DAILY 11/09/24 Semaglutide [Ozempic] 2 mg SQ FR 11/09/24 Controlled Substance Measures - Controlled Substance Measures Is patient prescribed a controlled substance at discharge?: No
[2024-11-09 16:31] LABS: Appearance,Urine Clear (Clear); Bacteria,Urine Rare /hpf; Bilirubin,Urine Negative (Negative); Blood,Urine Negative (Negative); Color,Urine Light Yellow; Glucose,Urine (UA) 4+ (Negative); Ketones,Urine Negative (Negative); Leukocyte Esterase,Urine Large (Negative); Mucus,Urine Rare /hpf; Nitrite,Urine Negative (Negative); Protein,Urine Negative (Negative); RBC,Urine 4 /hpf (0-5); Specific Gravity,Urine 1.031 (1.001-1.035); Squamous Epithelial Cell,Urine 3 /hpf (0-4); Urobilinogen,Urine <2.0 mg/dL (<2.0); WBC,Urine 23 /hpf (0-5)
[2024-11-09 18:05] LABS: Glucose,Whole Blood 110 mg/dL (70-110)
[2024-11-09] MEDS: INSULIN LISPRO (HumaLOG) 100 UNIT/ML 10 mL VL SQ SCH (18:05)
[2024-11-09 20:42] LABS: Glucose,Whole Blood 196 mg/dL (70-110)
[2024-11-09] MEDS: MONTELUKAST 10 MG TAB PO SCH (20:44)
[2024-11-09] MEDS: LORATADINE 10 MG TAB PO SCH (20:44)
[2024-11-10 06:08] LABS: Glucose,Whole Blood 117 mg/dL (70-110)
[2024-11-10 06:55] LABS: Basophils # (A) 0.07 10*3/uL (0.00-0.10); Basophils % (A) 0.6 %; Eosinophils # (A) 0.09 10*3/uL (0.04-0.35); Eosinophils % (A) 0.7 %; HCT 39.7 % (37.2-46.3); Lymphocytes # (A) 2.08 10*3/uL (0.90-5.00); Lymphocytes % (A) 16.6 %; MCH 31.3 pg (27.0-32.0); MCHC 32.7 g/dL (32.0-37.0); MCV 95.4 fL (80.0-97.0); Mean Platelet Volume 10.6 fL (9.5-12.2); Monocytes # (A) 0.97 10*3/uL (0.20-1.00); Monocytes % (A) 7.8 %; Neutrophils # (A) 9.24 10*3/uL (1.80-7.70); Neutrophils % (A) 73.8 %; Platelet Count 202 10*3/uL (140-440); RBC 4.16 10*6/uL (4.10-5.20); RDW 12.7 % (11.5-14.5); WBC 12.51 10*3/uL (4.50-10.00)
[2024-11-10 07:14] LABS: ALT 48 U/L (4-34); AST 47 U/L (14-36); African American GFR (CKD) 79 (>60 ml/min/1.73 sqM); Albumin 3.7 g/dL (3.5-5.0); Alkaline Phosphatase 64 U/L (38-126); Anion Gap 5 mmol/L; Blood Urea Nitrogen 14 mg/dL (7-17); Calcium 9.1 mg/dL (8.4-10.2); Carbon Dioxide 30 mmol/L (22-30); Chloride 102 mmol/L (98-107); Glucose 111 mg/dL (74-99); Non-African American GFR(CKD) 68 (>60 ml/min/1.73 sqM); Potassium 4.5 mmol/L (3.5-5.1); Sodium 137 mmol/L (137-145); Total Bilirubin 0.9 mg/dL (0.2-1.3); Total Protein 6.2 g/dL (6.3-8.2)
--- NOTE | 2024-11-10 07:31 | XR ---
EXAMINATION TYPE: XR chest 1V portable DATE OF EXAM: 11/10/2024 7:09 AM COMPARISON: Chest radiograph from two days prior. CLINICAL INDICATION: Female, 69 years old with history of Chest Trauma; TECHNIQUE: XR chest 1V portable Frontal view of the chest. FINDINGS: Lungs/Pleura: There is no evidence of pleural effusion, focal consolidation, or pneumothorax. Pulmonary vascularity: Unremarkable. Heart/mediastinum: Cardiomediastinal silhouette is unremarkable. Musculoskeletal: No acute osseous pathology. There is fixation hardware in the lower cervical spine. IMPRESSION: No evidence for acute process, stable exam. [facility], , 11/10/2024 7:28 AM
[2024-11-10] MEDS: KETOROLAC 15 MG/ML 1 ML VIAL IVP SCH (08:56)
[2024-11-10] MEDS: methocarbamoL 500 MG TAB PO PRN (09:55)
[2024-11-10 11:38] LABS: Glucose,Whole Blood 171 mg/dL (70-110)
--- NOTE | 2024-11-10 11:50 | P.PN ---
Subjective Progress Note Date: 11/10/24 SURGICAL PROGRESS NOTE CHIEF COMPLAINT: Fall with left-sided rib fractures HISTORY OF PRESENT ILLNESS: Patient does complain of pain in the left rib cage. She is scheduled for a pain block today with pain management service. She is on 2 L of oxygen satting at 91%. BP is better at 105/64. She did receive a fluid bolus yesterday for blood pressure in the 80s. Patient does report that her blood pressure does run on the lower side. Patient does complain of muscle spasms in that left rib cage. Chest x-ray for today was negative. Afebrile. WBC is down from 14-12. Patient denies any abdominal pain. Denies any new pain. PHYSICAL EXAM: VITAL SIGNS: Reviewed. GENERAL: Well-developed in no acute distress. HEENT: No sclera icterus. Extraocular movements grossly intact. Moist buccal mucosa. Head is atraumatic, normocephalic. ABDOMEN: Soft. Nondistended. Nontender. NEUROLOGIC: Alert and oriented. Cranial nerves II through XII grossly intact. ASSESSMENT: 1. Mechanical fall with trauma to the left rib cage 2. Fracture of Posterior left rib #9 and 10 due to fall 3. History of COPD PLAN: - Patient scheduled for pain block today with pain service - Change Toradol to scheduled - Continue Robaxin for muscle spasms - Colace added for constipation - Encouraged incentive spirometer use - Continue to work on pain management - GI prophylaxis Protonix and DVT prophylaxis Lovenox Physician Dough Cutter note has been reviewed by physician. Signing provider agrees with the documented findings, assessment, and plan of care. Attestation Patient seen and examined at bedside on 11/10/2024. Presents with chief complaint of left-sided pain after fall and found to have left-sided rib fr actures. Continue analgesia with Robaxin, Toradol, opiates as needed. Continue Lidoderm patch. Possibility of pain block today with pain service. Incentive spirometer and deep breathing exercises. Increase activity. Miranda Hooper DO Objective - Vital Signs Vital signs: Vital Signs Temp 98.8 F 11/10/24 08:25 Pulse 78 11/10/24 11:38 Resp 18 11/10/24 08:25 BP 105/64 11/10/24 08:25 Pulse Ox 92 L 11/10/24 08:25 FiO2 Intake & Output 11/09/24 11/10/24 11/10/24 18:59 06:59 18:59 Intake Total 300 Balance 300 Weight 78.018 kg 86 kg Intake: Oral 300 - Labs CBC & Chem 7: 11/13/24 10:55 11/12/24 07:29 Labs: Abnormal Lab Results - Last 24 Hours (Table) 11/09/24 11/09/24 11/09/24 Range/Units 16:03 16:19 20:40 WBC (4.50-10.00) 10*3/uL Immature Gran # (0.00-0.04) 10*3/uL Neutrophils # (1.80-7.70) 10*3/uL Glucose (74-99) mg/dL POC Glucose (mg/dL) 196 H (70-110) mg/dL Hemoglobin A1c 6.7 H (<=6.0) % AST (14-36) U/L ALT (4-34) U/L Total Protein (6.3-8.2) g/dL Urine Glucose (UA) 4+ H (Negative) Ur Leukocyte Esterase Large H (Negative) Urine WBC 23 H (0-5) /hpf Urine Bacteria Rare H (None) /hpf Urine Mucus Rare H (None) /hpf 11/10/24 11/10/24 11/10/24 Range/Units 06:07 06:21 06:21 WBC 12.51 H (4.50-10.00) 10*3/uL Immature Gran # 0.06 H (0.00-0.04) 10*3/uL Neutrophils # 9.24 H (1.80-7.70) 10*3/uL Glucose 111 H (74-99) mg/dL POC Glucose (mg/dL) 117 H (70-110) mg/dL Hemoglobin A1c (<=6.0) % AST 47 H (14-36) U/L ALT 48 H (4-34) U/L Total Protein 6.2 L (6.3-8.2) g/dL Urine Glucose (UA) (Negative) Ur Leukocyte Esterase (Negative) Urine WBC (0-5) /hpf Urine Bacteria (None) /hpf Urine Mucus (None) /hpf 11/10/24 Range/Units 11:36 WBC (4.50-10.00) 10*3/uL Immature Gran # (0.00-0.04) 10*3/uL Neutrophils # (1.80-7.70) 10*3/uL Glucose (74-99) mg/dL POC Glucose (mg/dL) 171 H (70-110) mg/dL Hemoglobin A1c (<=6.0) % AST (14-36) U/L ALT (4-34) U/L Total Protein (6.3-8.2) g/dL Urine Glucose (UA) (Negative) Ur Leukocyte Esterase (Negative) Urine WBC (0-5) /hpf Urine Bacteria (None) /hpf Urine Mucus (None) /hpf
--- NOTE | 2024-11-10 12:12 | P.PN ---
Subjective Progress Note Date: 11/10/24 Patient is a 69-year-old female brought in by EMS following a slip and fall in the bathtub. She was giving her granddaughter a bath. Landed on her left chest. Denies head trauma. Denies anticoagulation. Endorses lateral chest tenderness/pain with moving or deep breathing. CT of the chest, abdomen, pelvis remarkable for minimally displaced fractures involving posterior left rib 9 and 10. No pneumothoraces, pleural effusions, contusions. Minimal bilateral peripheral atelectasis. Patient currently being evaluated in the emergency department. Having trouble taking deep breaths secondary to pain. Has received a dose of Dilaudid. Toradol is also ordered. On 2 L/min nasal cannula. SpO2 is 98% on monitor. Respiratory therapist showing her how to use her incentive spirometer. She denies any other injuries. Vital signs are stable. 11/10/2024, patient is being seen for a follow-up. The patient is still having pain and muscle spasms across her left chest. Pain management was consulted r egarding the possibility of giving the patient e nerve block anesthetics and pain control. Otherwise, the patient remains on Dilaudid and she was also given oxycodone 5 mg every 6 hours on a as needed basis. She is also on Toradol 15 mg every 6 hours. She describes her pain to be 10 out of 10 and she is having difficulties using the incentive spirometer. Noted the patient had a fall with trauma to her left rib cage. She is also on a muscle relaxant. The white cell count is at 12.5 with a hemoglobin 13 and a platelet count of 202. Electrolytes are all within normal limits. Objective - Vital Signs Vital signs: Vital Signs Temp 98.9 F 11/10/24 03:26 Pulse 82 11/10/24 08:11 Resp 18 11/10/24 03:37 BP 100/65 11/10/24 03:26 Pulse Ox 95 11/10/24 08:02 FiO2 Intake & Output 11/09/24 11/10/24 11/10/24 18:59 06:59 18:59 Intake Total 300 Balance 300 Weight 78.018 kg 86 kg Intake: Oral 300 - Exam GENERAL EXAM: Alert, 69-year-old female, not in respiratory distress. HEAD: Normocephalic and atraumatic EYES: Normal reaction of pupils, equal size. NOSE: Clear with pink turbinates. THROAT: No erythema or exudates. NECK: No masses, no JVD. CHEST: No chest wall deformity. No crepitus, subcutaneous emphysema. LUNGS: Equal air entry with no crackles, wheeze, rhonchi or dullness. 2 L/min nasal cannula. No conversational dyspnea or accessory muscle use. Shallow breathing CVS: S1 and S2 normal with no audible murmur, regular rhythm. No extra heart sounds ABDOMEN: No hepatosplenomegaly, active bowel sounds, no guarding or rigidity. SPINE: No scoliosis or deformity SKIN: No rashes CENTRAL NERVOUS SYSTEM: No focal deficits, tone is normal in all 4 extremities. EXTREMITIES: There is no peripheral edema, clubbing, or cyanosis. Peripheral pulses are intact. - Labs CBC & Chem 7: 11/10/24 06:21 11/10/24 06:21 Labs: Abnormal Lab Results - Last 24 Hours (Table) 11/09/24 11/09/24 11/09/24 Range/Units 16:03 16:19 20:40 WBC (4.50-10.00) 10*3/uL Immature Gran # (0.00-0.04) 10*3/uL Neutrophils # (1.80-7.70) 10*3/uL Glucose (74-99) mg/dL POC Glucose (mg/dL) 196 H (70-110) mg/dL Hemoglobin A1c 6.7 H (<=6.0) % AST (14-36) U/L ALT (4-34) U/L Total Protein (6.3-8.2) g/dL Urine Glucose (UA) 4+ H (Negative) Ur Leukocyte Esterase Large H (Negative) Urine WBC 23 H (0-5) /hpf Urine Bacteria Rare H (None) /hpf Urine Mucus Rare H (None) /hpf 11/10/24 11/10/24 11/10/24 Range/Units 06:07 06:21 06:21 WBC 12.51 H (4.50-10.00) 10*3/uL Immature Gran # 0.06 H (0.00-0.04) 10*3/uL Neutrophils # 9.24 H (1.80-7.70) 10*3/uL Glucose 111 H (74-99) mg/dL POC Glucose (mg/dL) 117 H (70-110) mg/dL Hemoglobin A1c (<=6.0) % AST 47 H (14-36) U/L ALT 48 H (4-34) U/L Total Protein 6.2 L (6.3-8.2) g/dL Urine Glucose (UA) (Negative) Ur Leukocyte Esterase (Negative) Urine WBC (0-5) /hpf Urine Bacteria (None) /hpf Urine Mucus (None) /hpf Assessment and Plan Assessment: Mechanical fall Minimally displaced rib fractures involving posterior left rib 9 and 10. No pneumothoraces, pleural effusions, contusions. Minimal bilateral peripheral atelectasis. Severe left-sided chest wall pain with muscle spasms secondary to above Acute dyspnea, secondary to above Current ongoing tobacco smoker Plan: Ongoing significant pain posttraumatic injury to the left rib cage and rib fractures Currently, receiving combination of Dilaudid, Toradol, and Tylenol as needed, the patient is on oxycodone Chest CT reviewed, no pneumothoraces, pleural effusions, or pulmonary contusions. Remains on oxygen 4 L/min nasal cannula Muscle relaxants was added Pain management will be consulted in consideration for a nerve block Encourage pulmonary toileting/incentive spirometer hourly awake We will continue to follow
[2024-11-10] MEDS: DOCUSATE 100 MG CAP PO SCH (12:33)
[2024-11-10] MEDS: ONDANSETRON 4 MG/2 ML VIAL IVP PRN (12:40)
--- NOTE | 2024-11-10 14:25 | P.PN ---
Subjective Progress Note Date: 11/10/24 69 year old F with PMH of Asthma/COPD, 43 pack year smoking history, seasonal allergies, diabetes mellitus, depression, GERD presents to the ED after a mechanical fall. Patient reports bathing her granddaughter, when she stood up to grab soap, she lost her footing landing on her left side. She immediately experienced 20/10 pain which resulted in a syncopal episode. Pain is worse with movement and deep inspiration. Reports SOB as a result of the pain. She denies any chest pain, dizziness, palpitations, fever or chills, cough, nausea or vomiting, changes in urination or bowel habits. No changes in appetite or weight. In the ED he underwent extensive evaluation. BP 100/67, HR 74, T 98.3F, RR 18, 91% on RA. Labs significant for WBC 14.05, glu 171, AST 56, ALT 47. EKG shows NSR. CT chest/abdomen/pelvis confirmed posterior left rib 9th and 10th fracture with 2 mm displacement. Patient is admitted to surgery with medicine on consult. 11/10 Patient was seen and examined. Reports continued 10/10 rib pain with movement and deep inspiration. Scheduled for Epidural block with pain management today. CBC and CMP significant for WBC 12.51, glu 111, AST 47, ALT 48, total protein 6.2. CXR shows no acute process. General: mild toxic, no distress, appears at stated age Derm: warm, dry Head: atraumatic, normocephalic, symmetric Eyes: EOMI, no lid lag, anicteric sclera Mouth: no lip lesion, mucus membranes moist Cardiovascular: S1S2 tachy, no murmur Lungs: Decreased BS bilaterally, no rhonchi, no rales , no accessory muscle use Ext: no gross muscle atrophy, no edema, no contractures Neuro: no focal neuro deficits Psych: Alert and oriented. Based on my assessment of this patient, this patient meets a high complexity level of care. Acute hypoxic respiratory failure secondary to 9th and 10th posterior left rib fracture: Pain management with Dilaudid 0.5 mg IV Q3H PRN, Toradol 15 mg IV Q6H PRN, Lidocaine patch, Robaxin 500 mg PO TID PRN, Oxy 5 mg PO Q6H PRN. Pain management consulted, plans for nerve block today. Telemetry monitoring. Fall precautions. PT and OT consult. Encourage IS. Pulmonary and surgery on board. SIRS likely related to above Transaminitis: Unknown etiology. Monitor. Asthma/COPD not in acute exacerbation: DuoNeb Q4H PRN. 43 pack year smoking history: Nicotine patch 14 mg daily. Seasonal allergies: Singulair 10 mg PO QHS. Claritin 10 mg PO QD. Diabetes mellitus: ISS with Accuchecks ACHS along with hypoglycemic precautions. Obtain A1c. Depression: Fluoxetine 20 mg PO QD. GERD: Protonix 40 mg PO QD. CODE STATUS: FULL CODE DVT Prophylaxis: Lovenox. GI Prophylaxis: Protonix PO Designated medical POA if patient is not able to make medical decisions for themselves: I have reviewed the following speech correction consultant notes: Surgery, Pulm. I have reviewed the results of the following tests: CBC, CMP. I have ordered the following tests: I have discussed the care of this patient with the following independent historian: I have independently interpreted the following test below: CXR I have discussed the management of this patient with the following physician: Objective - Vital Signs Vital signs: Vital Signs Temp 98.8 F 11/10/24 08:25 Pulse 78 11/10/24 11:38 Resp 18 11/10/24 08:25 BP 105/64 11/10/24 08:25 Pulse Ox 92 L 11/10/24 08:25 FiO2 Intake & Output 11/09/24 11/10/24 11/10/24 18:59 06:59 18:59 Intake Total 300 240 Balance 300 240 Weight 78.018 kg 86 kg Intake: Oral 300 240 - Labs CBC & Chem 7: 11/10/24 06:21 11/10/24 06:21 Labs: Abnormal Lab Results - Last 24 Hours (Table) 11/09/24 11/09/24 11/09/24 Range/Units 16:03 16:19 20:40 WBC (4.50-10.00) 10*3/uL Immature Gran # (0.00-0.04) 10*3/uL Neutrophils # (1.80-7.70) 10*3/uL Glucose (74-99) mg/dL POC Glucose (mg/dL) 196 H (70-110) mg/dL Hemoglobin A1c 6.7 H (<=6.0) % AST (14-36) U/L ALT (4-34) U/L Total Protein (6.3-8.2) g/dL Urine Glucose (UA) 4+ H (Negative) Ur Leukocyte Esterase Large H (Negative) Urine WBC 23 H (0-5) /hpf Urine Bacteria Rare H (None) /hpf Urine Mucus Rare H (None) /hpf 11/10/24 11/10/24 11/10/24 Range/Units 06:07 06:21 06:21 WBC 12.51 H (4.50-10.00) 10*3/uL Immature Gran # 0.06 H (0.00-0.04) 10*3/uL Neutrophils # 9.24 H (1.80-7.70) 10*3/uL Glucose 111 H (74-99) mg/dL POC Glucose (mg/dL) 117 H (70-110) mg/dL Hemoglobin A1c (<=6.0) % AST 47 H (14-36) U/L ALT 48 H (4-34) U/L Total Protein 6.2 L (6.3-8.2) g/dL Urine Glucose (UA) (Negative) Ur Leukocyte Esterase (Negative) Urine WBC (0-5) /hpf Urine Bacteria (None) /hpf Urine Mucus (None) /hpf 11/10/24 Range/Units 11:36 WBC (4.50-10.00) 10*3/uL Immature Gran # (0.00-0.04) 10*3/uL Neutrophils # (1.80-7.70) 10*3/uL Glucose (74-99) mg/dL POC Glucose (mg/dL) 171 H (70-110) mg/dL Hemoglobin A1c (<=6.0) % AST (14-36) U/L ALT (4-34) U/L Total Protein (6.3-8.2) g/dL Urine Glucose (UA) (Negative) Ur Leukocyte Esterase (Negative) Urine WBC (0-5) /hpf Urine Bacteria (None) /hpf Urine Mucus (None) /hpf
[2024-11-10 17:05] LABS: Glucose,Whole Blood 146 mg/dL (70-110)
[2024-11-10 20:47] LABS: Glucose,Whole Blood 147 mg/dL (70-110)
[2024-11-11 06:14] LABS: Glucose,Whole Blood 146 mg/dL (70-110)
--- NOTE | 2024-11-11 09:12 | P.PCN ---
Date of Procedure: 11/11/24 Description of Procedure: Pre- and Post-operative Diagnosis: Thoracic spondylosis without myelopathy, and thoracic disc herniation. Procedure: Left side T9-T10 inter-laminar Thoracic epidural steroid injection under biplanar fluoroscopy Surgeon: Kalyani Law Anesthesia: Local: 1% Lidocaine, IV sedation : fentanyl 50+50 g. Sedation supervision start time: 0850 Sedation supervision eneded time : 0903 Complications: None. Estimated blood loss: None Specimens removed: None Fluoroscopic image: Saved to patient electronic medical records. Indications for Procedure: The patient has been suffering from thoracic back pain. The patient had inadequate pain control with pharmacologic regimen. So came here for inter-laminar thoracic epidural steroid injection was scheduled for the patient. Procedure and Findings: The patient was seen and examined in the holding area. The written informed consent was obtained after explaining the risks, benefits, and alternatives of the procedure to the patient. The patient was brought to the procedure room and was placed in the prone position on the operating table. A pillow was placed under the chest. Standard anesthesia monitoring was done through out the procedure. The skin preparation was done with ChloraPrep 1 and draping was done in usual sterile fashion. Sterile technique was observed throughout the procedure. Under fluoroscopic guidance, the Thoracic T9-T10 inter-laminar space was identified. 4ml of 1% Lidocaine was injected with a 25 gauge needle to achieve adequate local anesthesia of the skin and subcutaneous tissue. A 20 gauge 3.5 inch Tuohy type epidural needle was placed and advanced gradually up to the epidural space using loss of resistance technique and fluoroscopic guidance. No paresthesia was noted. A negative aspiration was confirmed , as IV contrast dye not used/Isovue 200 not used as per patient request as she is allergic to it. After negative aspiration, A total of 6 ml solution containing 10 mg of dexamethasone , 5 mL of PF Normal Saline was injected slowly with intermittent aspiration. The needle was removed intact, area was cleaned and bandage was applied. Disposition : The patient tolerated the procedure very well. The patient was transferred to the recovery room and remained stable until discharged in patient room. The patient and RN taking care of her was given detailed discharge instructions for infection, bleeding, and increased pain at the injection site, and was advised to seek immediate medical attention should significant side effects develop. The patient scheduled with the pain clinic for follow-up visit in 2-4 weeks if needed.
[2024-11-11] MEDS ORDERED: DEXAMETHASONE SOD PHOSPHATE 10 MG/ML 1 ML VIAL ONE (09:15)
[2024-11-11] MEDS ORDERED: fentaNYL (PF) 50 MCG/ML 2 ML AMP ONE (09:15)
[2024-11-11] MEDS: IV FLUID CONTINUATION 1,000 ML IV ONE (09:17)
--- NOTE | 2024-11-11 09:29 | FL ---
EXAMINATION TYPE: FL guided pain mgmt statistic DATE OF EXAM: 11/11/2024 9:18 AM COMPARISON: Pre Operative Images if available both CT/MRI or plain film CLINICAL INDICATION: Female, 69 years old with history of T-spine Epid Inj; TECHNIQUE: FL guided pain mgmt statistic, multiple fluoroscopic images provided for procedure. DAP: 0.83375 mGym2 Gycm2 uGym2 cGycm2 or equivalent. FINDINGS: Fluoroscopic images during injection for pain management demonstrate multilevel degeneration changes throughout the spine. No evidence for fracture. No acute process identified. IMPRESSION: 1. No evidence for intraoperative complication. 2. Please see the operative/procedural note for further details. [facility], , 11/11/2024 9:27 AM
[2024-11-11 09:36] LABS: Glucose,Whole Blood 149 mg/dL (70-110)
[2024-11-11] MEDS: LACTATED RINGERS 1,000 ML IV SCH (09:50)
[2024-11-11 11:17] LABS: Glucose,Whole Blood 226 mg/dL (70-110)
--- NOTE | 2024-11-11 12:36 | P.PN ---
Subjective Progress Note Date: 11/11/24 SURGICAL PROGRESS NOTE CHIEF COMPLAINT: Fall with left-sided rib fractures HISTORY OF PRESENT ILLNESS: Patient reports her pain is a little better after the epidural injection done by pain management service. She did shuffle to the bedside chair yesterday. Patient still has a lot of pain with movement. Afebrile. She is on 3 L satting at 90%. BP 91/60. PHYSICAL EXAM: VITAL SIGNS: Reviewed. GENERAL: Well-developed in no acute distress. HEENT: No sclera icterus. Extraocular movements grossly intact. Moist buccal mucosa. Head is atraumatic, normocephalic. ABDOMEN: Soft. Nondistended. Nontender. NEUROLOGIC: Alert and oriented. Cranial nerves II through XII grossly intact. ASSESSMENT: 1. Mechanical fall with trauma to the left rib cage 2. Fracture of Posterior left rib #9 and 10 due to fall 3. History of COPD PLAN: - Continue pain management - Encourage patient to increase activity level - Encouraged incentive spirometer use - GI prophylaxis Protonix and DVT prophylaxis Lovenox Physician Music Researcher note has been reviewed by physician. Signing provider agrees with the documented findings, assessment, and plan of care. Objective - Vital Signs Vital signs: Vital Signs Temp 98.2 F 11/11/24 11:44 Pulse 88 11/11/24 11:44 Resp 18 11/11/24 11:44 BP 91/60 11/11/24 11:44 Pulse Ox 90 L 11/11/24 11:44 FiO2 Intake & Output 11/10/24 11/11/24 11/11/24 18:59 06:59 18:59 Intake Total 1080 1080 790 Output Total 2500 2700 1000 Balance -1420 -1620 -210 Weight 83 kg Intake: IV 100 Intake, IV Titration 600 450 Amount Sodium Chloride 0.9% 1, 600 450 000 ml @ 75 mls/hr IV . [id number] BRIGITTE Rx#:[id number] Oral 480 1080 240 Output: Urine 2500 2700 1000 Straight 2000 2700 Other: Voiding Method Indwelling Catheter Indwelling Catheter - Labs CBC & Chem 7: 11/10/24 06:21 11/10/24 06:21 Labs: Abnormal Lab Results - Last 24 Hours (Table) 11/10/24 11/10/24 11/11/24 Range/Units 17:04 20:45 06:13 POC Glucose (mg/dL) 146 H 147 H 146 H (70-110) mg/dL 11/11/24 11/11/24 Range/Units 09:35 11:15 POC Glucose (mg/dL) 149 H 226 H (70-110) mg/dL Microbiology - Last 24 Hours (Table) 11/09/24 16:19 Urine Culture - Final Urine,Voided
--- NOTE | 2024-11-11 12:40 | P.PN ---
Subjective Progress Note Date: 11/11/24 69 year old F with PMH of Asthma/COPD, 43 pack year smoking history, seasonal allergies, diabetes mellitus, depression, GERD presents to the ED after a mechanical fall. Patient reports bathing her granddaughter, when she stood up to grab soap, she lost her footing landing on her left side. She immediately experienced 20/10 pain which resulted in a syncopal episode. Pain is worse with movement and deep inspiration. Reports SOB as a result of the pain. She denies any chest pain, dizziness, palpitations, fever or chills, cough, nausea or vomiting, changes in urination or bowel habits. No changes in appetite or weight. In the ED he underwent extensive evaluation. BP 100/67, HR 74, T 98.3F, RR 18, 91% on RA. Labs significant for WBC 14.05, glu 171, AST 56, ALT 47. EKG shows NSR. CT chest/abdomen/pelvis confirmed posterior left rib 9th and 10th fracture with 2 mm displacement. Patient is admitted to surgery with medicine on consult. Pain management consulted, underwent epidural nerve block on 11/11. 11/11 Patient was seen and examined. Improved rib pain after nerve block. Overnight retaining significant urine > 2L requiring Malik catheter. She reports a history of bladder prolapse for which she has been following Gyne outpatient. No new labs done today. General: no toxic, no distress, appears at stated age Derm: warm, dry Head: atraumatic, normocephalic, symmetric Eyes: EOMI, no lid lag, anicteric sclera Mouth: no lip lesion, mucus membranes moist Cardiovascular: S1S2 reg, no murmur Lungs: Decreased BS bilaterally, no rhonchi, no rales , no accessory muscle use Ext: no gross muscle atrophy, no edema, no contractures Neuro: no focal neuro deficits Psych: Alert and oriented. Based on my assessment of this patient, this patient meets a high complexity level of care. Acute hypoxic respiratory failure secondary to 9th and 10th posterior left rib fracture: Pain management with Dilaudid 0.5 mg IV Q3H PRN, Toradol 15 mg IV Q6H PRN, Lidocaine patch, Robaxin 500 mg PO TID PRN, Oxy 5 mg PO Q6H PRN. Pain management consulted, plans for nerve block today. Telemetry monitoring. Fall precautions. PT and OT consult. Encourage IS. Pulmonary and surgery on board. SIRS likely related to above Urinary retention: History of bladder prolapse. Chronic issue. Malik catheter inserted. Consult Gyne. Transaminitis: Unknown etiology. Monitor. Asthma/COPD not in acute exacerbation: DuoNeb Q4H PRN. 43 pack year smoking history: Nicotine patch 14 mg daily. Seasonal allergies: Singulair 10 mg PO QHS. Claritin 10 mg PO QD. Diabetes mellitus: ISS with Accuchecks ACHS along with hypoglycemic precautions. Obtain A1c. Depression: Fluoxetine 20 mg PO QD. GERD: Protonix 40 mg PO QD. CODE STATUS: FULL CODE DVT Prophylaxis: Lovenox. GI Prophylaxis: Protonix PO Designated medical POA if patient is not able to make medical decisions for themselves: I have reviewed the following dairy nutrition consultant notes: Surgery, Pain management note. I have reviewed the results of the following tests: I have ordered the following tests: BMP in the AM to evaluate renal function. I have discussed the care of this patient with the following independent historian: RN regarding urinary retention. I have independently interpreted the following test below: I have discussed the management of this patient with the following physician: Objective - Vital Signs Vital signs: Vital Signs Temp 98.2 F 11/11/24 11:44 Pulse 88 11/11/24 11:44 Resp 18 11/11/24 11:44 BP 91/60 11/11/24 11:44 Pulse Ox 90 L 11/11/24 11:44 FiO2 Intake & Output 11/10/24 11/11/24 11/11/24 18:59 06:59 18:59 Intake Total 1080 1080 790 Output Total 2500 2700 1000 Balance -1420 -1620 -210 Weight 83 kg Intake: IV 100 Intake, IV Titration 600 450 Amount Sodium Chloride 0.9% 1, 600 450 000 ml @ 75 mls/hr IV . [id number] BRIGITTE Rx#:[id number] Oral 480 1080 240 Output: Urine 2500 2700 1000 Straight 2000 2700 Other: Voiding Method Indwelling Catheter Indwelling Catheter - Labs CBC & Chem 7: 11/10/24 06:21 11/10/24 06:21 Labs: Abnormal Lab Results - Last 24 Hours (Table) 11/10/24 11/10/24 11/11/24 Range/Units 17:04 20:45 06:13 POC Glucose (mg/dL) 146 H 147 H 146 H (70-110) mg/dL 11/11/24 11/11/24 Range/Units 09:35 11:15 POC Glucose (mg/dL) 149 H 226 H (70-110) mg/dL Microbiology - Last 24 Hours (Table) 11/09/24 16:19 Urine Culture - Final Urine,Voided
--- NOTE | 2024-11-11 15:58 | P.PN ---
Subjective Progress Note Date: 11/11/24 Patient is a 69-year-old female brought in by EMS following a slip and fall in the bathtub. She was giving her granddaughter a bath. Landed on her left chest. Denies head trauma. Denies anticoagulation. Endorses lateral chest tenderness/pain with moving or deep breathing. CT of the chest, abdomen, pelvis remarkable for minimally displaced fractures involving posterior left rib 9 and 10. No pneumothoraces, pleural effusions, contusions. Minimal bilateral peripheral atelectasis. Patient currently being evaluated in the emergency department. Having trouble taking deep breaths secondary to pain. Has received a dose of Dilaudid. Toradol is also ordered. On 2 L/min nasal cannula. SpO2 is 98% on monitor. Respiratory therapist showing her how to use her incentive spirometer. She denies any other injuries. Vital signs are stable. 11/10/2024, patient is being seen for a follow-up. The patient is still having pain and muscle spasms across her left chest. Pain management was consulted r egarding the possibility of giving the patient e nerve block anesthetics and pain control. Otherwise, the patient remains on Dilaudid and she was also given oxycodone 5 mg every 6 hours on a as needed basis. She is also on Toradol 15 mg every 6 hours. She describes her pain to be 10 out of 10 and she is having difficulties using the incentive spirometer. Noted the patient had a fall with trauma to her left rib cage. She is also on a muscle relaxant. The white cell count is at 12.5 with a hemoglobin 13 and a platelet count of 202. Electrolytes are all within normal limits. On 11/11/2024, the patient seems to be much more comfortable. The patient underwent a epidural steroid injection into her laminar at the level of T9-T10. Since then, her pain control is improved considerably. She is more committed in using her incentive spirometer. She remains on 3 L of oxygen by nasal cannula with a pulse ox of 90%. Pain is improved. No new labs are available from today. The patient denies having any other new complaints for now. She is on Lovenox 30 mg subcu for DVT prophylaxis. The patient remains on l normal saline at rate of 75 cc an hour. She is on oxycodone 5 mg every 6 hours on a as needed basis, Robaxin 500 mg p.o. 3 times daily. No altered mentation. No other new complaints otherwise for now. Objective - Vital Signs Vital signs: Vital Signs Temp 98.9 F 11/11/24 07:35 Pulse 85 11/11/24 09:45 Resp 16 11/11/24 09:45 BP 100/58 11/11/24 09:45 Pulse Ox 97 11/11/24 09:45 FiO2 Intake & Output 11/10/24 11/11/24 11/11/24 18:59 06:59 18:59 Intake Total 1080 1080 100 Output Total 2500 2700 Balance -1420 -1620 100 Weight 83 kg Intake: IV 100 Intake, IV Titration 600 Amount Sodium Chloride 0.9% 1, 600 000 ml @ 75 mls/hr IV . [id number] [facility] Rx#:[id number] Oral 480 1080 Output: Urine 2500 2700 Straight 2000 2700 Other: Voiding Method Indwelling Catheter Indwelling Catheter - Exam GENERAL EXAM: Alert, 69-year-old female, not in respiratory distress. HEAD: Normocephalic and atraumatic EYES: Normal reaction of pupils, equal size. NOSE: Clear with pink turbinates. THROAT: No erythema or exudates. NECK: No masses, no JVD. CHEST: No chest wall deformity. No crepitus, subcutaneous emphysema. LUNGS: Equal air entry with no crackles, wheeze, rhonchi or dullness. 3 L/min nasal cannula. No conversational dyspnea or accessory muscle use. Air entry is improved bilaterally and the patient is has ongoing soreness to palpation to her chest. ABDOMEN: No hepatosplenomegaly, active bowel sounds, no guarding or rigidity. SPINE: No scoliosis or deformity SKIN: No rashes CENTRAL NERVOUS SYSTEM: No focal deficits, tone is normal in all 4 extremities. EXTREMITIES: There is no peripheral edema, clubbing, or cyanosis. Peripheral pulses are intact. - Labs CBC & Chem 7: 11/10/24 06:21 11/10/24 06:21 Labs: Abnormal Lab Results - Last 24 Hours (Table) 11/10/24 11/10/24 11/10/24 Range/Units 11:36 17:04 20:45 POC Glucose (mg/dL) 171 H 146 H 147 H (70-110) mg/dL 05/16/25 05/16/25 Range/Units 06:13 09:35 POC Glucose (mg/dL) 146 H 149 H (70-110) mg/dL Microbiology - Last 24 Hours (Table) 11/09/24 16:19 Urine Culture - Final Urine,Voided Assessment and Plan Assessment: Mechanical fall Minimally displaced rib fractures involving posterior left rib 9 and 10. No pne umothoraces, pleural effusions, contusions. Minimal bilateral peripheral atelectasis. Severe left-sided chest wall pain with muscle spasms secondary to above, improved post T9-10 epidural interlaminar steroid injection. Acute hypoxic respiratory failure related to shallow breathing pain related and atelectasis, currently on liters of oxygen by nasal cannula Acute dyspnea, secondary to above, improving Current ongoing tobacco smoker Plan: Improvement in pain control post epidural interlaminar T9 10 injection. This is a posttraumatic injury to the left rib cage and rib fractures Currently, receiving combination of Dilaudid, Toradol, and Tylenol as needed, the patient is on oxycodone Chest CT reviewed, no pneumothoraces, pleural effusions, or pulmonary contusions. Remains on oxygen 3 L/min nasal cannula Increased use of incentive spirometer Obtain a follow-up chest x-ray in a.m. Encourage pulmonary toileting/incentive spirometer hourly awake We will continue to follow
[2024-11-11 16:36] LABS: Glucose,Whole Blood 264 mg/dL (70-110)
[2024-11-11 20:23] LABS: Glucose,Whole Blood 226 mg/dL (70-110)
[2024-11-12 06:16] LABS: Glucose,Whole Blood 178 mg/dL (70-110)
--- NOTE | 2024-11-12 07:06 | XR ---
EXAMINATION TYPE: XR chest 1V DATE OF EXAM: 11/12/2024 COMPARISON: 11/10/2024 CLINICAL INDICATION: Female, 69 years old with history of Pulmonary contusion; TECHNIQUE: Single frontal view of the chest is obtained. FINDINGS: There is persistent mild elevation of the right hemidiaphragm mild right lower lobe atelectasis. The left lung is clear. There is no pneumothorax or pleural effusion. Heart size is normal. The osseous structures are intact. IMPRESSION: Mild right lower lobe atelectasis. [facility], , 11/12/2024 7:04 AM
--- NOTE | 2024-11-12 08:14 | P.PN ---
Progress Note - Text Progress Note Date: 11/12/24 CHIEF COMPLAINT: Fall with left-sided rib fractures HISTORY OF PRESENT ILLNESS: No acute events overnight. Pain is controlled. PHYSICAL EXAM: VITAL SIGNS: Reviewed. GENERAL: Well-developed in no acute distress. HEENT: No sclera icterus. Extraocular movements grossly intact. Moist buccal mucosa. Head is atraumatic, normocephalic. ABDOMEN: Soft. Nondistended. Nontender. NEUROLOGIC: Alert and oriented. Cranial nerves II through XII grossly intact. ASSESSMENT: 1. Mechanical fall with trauma to the left rib cage 2. Fracture of Posterior left rib #9 and 10 due to fall 3. History of COPD PLAN: - Continue pain management - Regular Diet - Encourage patient to increase activity level - Encouraged incentive spirometer use - GI prophylaxis Protonix and DVT prophylaxis Lovenox Shai Rebollar DO [facility] [phone]
[2024-11-12 08:26] LABS: Basophils # (A) 0.05 10*3/uL (0.00-0.10); Basophils % (A) 0.3 %; Eosinophils # (A) 0.06 10*3/uL (0.04-0.35); Eosinophils % (A) 0.4 %; HCT 39.3 % (37.2-46.3); HGB 12.9 g/dL (12.0-15.0); Lymphocytes # (A) 2.58 10*3/uL (0.90-5.00); MCH 31.5 pg (27.0-32.0); MCHC 32.8 g/dL (32.0-37.0); MCV 95.9 fL (80.0-97.0); Mean Platelet Volume 10.5 fL (9.5-12.2); Monocytes # (A) 1.11 10*3/uL (0.20-1.00); Monocytes % (A) 6.9 %; Neutrophils # (A) 12.26 10*3/uL (1.80-7.70); Platelet Count 223 10*3/uL (140-440); RDW 12.4 % (11.5-14.5); WBC 16.13 10*3/uL (4.50-10.00)
[2024-11-12 08:47] LABS: African American GFR (CKD) >90 (>60 ml/min/1.73 sqM); Anion Gap 4 mmol/L; Blood Urea Nitrogen 15 mg/dL (7-17); Calcium 8.9 mg/dL (8.4-10.2); Carbon Dioxide 32 mmol/L (22-30); Chloride 103 mmol/L (98-107); Glucose 125 mg/dL (74-99); Non-African American GFR(CKD) >90 (>60 ml/min/1.73 sqM); Potassium 4.2 mmol/L (3.5-5.1); Sodium 139 mmol/L (137-145)
[2024-11-12 11:33] LABS: Glucose,Whole Blood 147 mg/dL (70-110)
--- NOTE | 2024-11-12 13:19 | P.GSCN ---
History of Present Illness Consult date: 11/12/24 Reason for Consult: Urinary retention, bladder prolapse Requesting physician: Marianela Domingo History of present illness: The patient is a 69-year-old white female who fell on her left side while bathing her granddaughter, sustaining left-sided rib fractures. She has undergone T9-T10 epidural steroid injection. She was noted to be in urinary retention, and a Malik catheter was placed with return of 2 L of urine. She has known bladder prolapse, and is being followed by Dr. Simmons. She states that she has recently been fitted for a pessary. She underwent a hysterectomy in the remote past, and has undergone both cystocele and rectocele repairs in the past. She states that she has experienced voiding difficulty for quite some time. Review of Systems - Genitourinary Genitourinary: Reports as per HPI Past Medical History Past Medical History: Diabetes Mellitus, GERD/Reflux Additional Past Medical History / Comment(s): melanoma cancer History of Any Multi-Drug Resistant Organisms: None Reported Past Surgical History: Back Surgery, Bladder Surgery, Cholecystectomy, Hernia Repair, Hysterectomy, Orthopedic Surgery, Tonsillectomy Additional Past Surgical History / Comment(s): rectal seal Past Anesthesia/Blood Transfusion Reactions: Previous Problems w/ Anesthesia Additional Past Anesthesia/Blood Transfusion Reaction / Comm: slow to wake from anesthesia Past Psychological History: No Psychological Hx Reported Smoking Status: Current every day smoker Past Alcohol Use History: Occasional Past Drug Use History: None Reported - Past Family History Father Family Medical History: Cancer Additional Family Medical History / Comment(s): colon cancer Mother Family Medical History: Cancer Additional Family Medical History / Comment(s): ovarian and cervical cancer Sister(s) Family Medical History: Cancer Additional Family Medical History / Comment(s): breast cancer Medications and Allergies Home Medications Medication Instructions Recorded Confirmed Type Omeprazole [PriLOSEC] 20 mg PO DAILY 12/01/14 11/09/24 History Empagliflozin [Jardiance] 25 mg PO DAILY 11/09/24 11/09/24 History Estradiol Cream [Estrace Cream 1 gm VAGINAL DIRECTED 11/09/24 11/09/24 History 0.01%] FLUoxetine HCL [Sarafem] 20 mg PO DAILY 11/09/24 11/09/24 History Loratadine [Claritin] 10 mg PO HS 11/09/24 11/09/24 History Montelukast [Singulair] 10 mg PO HS 11/09/24 11/09/24 History Multivitamins, Thera [Multivitamin 1 tab PO DAILY 11/09/24 11/09/24 History (formulary)] [place]-3/Dha/Epa/Fish Oil [Fish Oil 1 cap PO DAILY 11/09/24 11/09/24 History 1,000 mg Softgel] Semaglutide [Ozempic] 2 mg SQ FR 11/09/24 11/09/24 History Allergies Allergy/AdvReac Type Severity Reaction Status Date / Time codeine Allergy N & V. Verified 11/09/24 07:27 SHAKING. Surgical - Exam Vital Signs Temp Pulse Resp BP Pulse Ox 98.3 F 74 18 100/67 91 L 11/08/24 21:41 11/08/24 21:41 11/08/24 21:41 11/08/24 21:41 11/08/24 21:41 - General well developed, well nourished, no distress - Respiratory normal respiratory effort - Psychiatric oriented to time, oriented to person, oriented to place, speech is normal, memory intact Results - Labs 11/12/24 07:29 11/12/24 07:29 Abnormal Lab Results - Last 24 Hours (Table) 11/11/24 11/11/24 11/11/24 Range/Units 09:35 11:15 16:34 POC Glucose (mg/dL) 149 H 226 H 264 H (70-110) mg/dL 11/11/24 11/12/24 Range/Units 20:20 06:13 POC Glucose (mg/dL) 226 H 178 H (70-110) mg/dL - Imaging CT scan - abdomen: report reviewed, image reviewed Assessment and Plan (1) Retention of urine, unspecified Current Visit: Yes Status: Acute Code(s): R33.9 - RETENTION OF URINE, UNSPECIFIED SNOMED Code(s): 077816045 Plan: The patient's urinary retention is almost certainly due to her pelvic prolapse. If she fails treatment with a pessary, I suggested she consider a sacrocolpope xy. Alternatively, colpocleisis could be considered, as she is not sexually active, but I will defer this to Dr. Simmons. She has performed self catheterization in the past, and I believe this should be resumed until her pelvic prolapse has been adequately treated. However, she is currently in considerable pain due to the rib fractures. It was thus agreed that she will be discharged home with a Malik catheter and follow-up with me in 2 weeks, at which time the catheter will be removed and arrangements will be made for her to perform intermittent self-catheterization. Please notify me if I can be of any further assistance during this hospitalization. Time with Patient: Greater than 30
--- NOTE | 2024-11-12 13:57 | P.PN ---
Subjective Progress Note Date: 11/12/24 Hospital Course: A 69-year-old female with PMH of Asthma/COPD, 43 pack year smoking history, se asonal allergies, diabetes mellitus, depression, GERD presents to the ED after a mechanical fall. Patient reports bathing her granddaughter, when she stood up to grab soap, she lost her footing landing on her left side. She immediately experienced 20/10 pain which resulted in a syncopal episode. Pain is worse with movement and deep inspiration. Reports SOB as a result of the pain. She denies any chest pain, dizziness, palpitations, fever or chills, cough, nausea or vomiting, changes in urination or bowel habits. No changes in appetite or weight. In the ED he underwent extensive evaluation. BP 100/67, HR 74, T 98.3F, RR 18, 91% on RA. Labs significant for WBC 14.05, glu 171, AST 56, ALT 47. EKG shows NSR. CT chest/abdomen/pelvis confirmed posterior left rib 9th and 10th fracture with 2 mm displacement. Patient is admitted to surgery with medicine on consult. Pain management consulted, underwent epidural nerve block on 11/11. Patient has been retaining urine, Malik catheter was placed. Patient noted to have a history of pelvic prolapse. Urology consulted, recommended to be discharged home with Malik catheter and follow-up in 2 weeks, patient does have history of prior self-catheterization. 11/12: Patient was seen and examined at bedside, she was sitting at the edge of the bed, getting ready to work with physical therapy. Noted significant pain in the rib cage, improved with pain medications, shortness of breath persisting. She is on 4 L nasal cannula today. Lab work showed leukocytosis 16.1. BMP stable Pertinent positives and negatives as discussed above, a complete review of systems was performed and all other systems are negative. Vitals Signs Reviewed. General: [nontoxic], [no distress], [appears at stated age] Derm: [warm], [dry] Head: [atraumatic], [normocephalic], [symmetric] Eyes: [EOMI], [no lid lag], [anicteric sclera] Mouth: [no lip lesion], [mucus membranes moist] Cardiovascular: [S1S2 reg], [no murmur] Lungs: Decreased breath sounds bilaterally [no rhonchi, no rales] , [no accessory muscle use] Abdominal: [soft], [ nontender to palpation], [no guarding], [no appreciable organomegaly] Ext: [no gross muscle atrophy], [no edema], [no contractures] Neuro: [ CN II-XI grossly intact], [no focal neuro deficits] Psych: [Alert], [oriented], [appropriate affect] Assessment and Plan: Acute hypoxic respiratory failure secondary to 9th and 10th posterior left rib fracture SIRS likely secondary to above -Pain management following, status post epidural nerve block on 11/11 -Pain management with Dilaudid 0.5 mg IV Q3H PRN, Toradol 15 mg IV Q6H PRN, Lidocaine patch, Robaxin 500 mg PO TID PRN, Oxy 5 mg PO Q6H PRN. - Fall precautions -PT OT consulted -Encourage incentive spirometry -Pulmonary and surgery on board, appreciate recommendations -Repeat chest x-ray showed mild right lower lobe atelectasis Urinary retention Pelvic prolapse -Will be discharged with Malik catheter and follow-up with urology in 2 weeks -Neurology following, appreciate recommendations Transaminitis: Outpatient follow-up Asthma/COPD not in acute exacerbation: Continue DuoNeb every 4 hours as needed 43 pack year smoking history: Nicotine patch 14 mg daily. Seasonal allergies: Singulair 10 mg PO QHS. Claritin 10 mg PO QD. Diabetes mellitus: ISS with Accuchecks ACHS along with hypoglycemic precautions. Obtain A1c. Depression: Fluoxetine 20 mg PO QD. GERD: Protonix 40 mg PO QD. I have reviewed the following senior analytic consultant notes: Pulmonary, surgery I have reviewed the results of the following tests: CBC and BMP, chest x-ray I have ordered the following tests: CBC to monitor leukocytosis I have discussed the care of this patient with the following independent historian: RN, discussed pain management I have independently interpreted the following test below: As above I have discussed the management of this patient with the following physician: DVT ppx: Lovenox Code status: Full code Objective - Vital Signs Vital signs: Vital Signs Temp 98.6 F 11/12/24 08:35 Pulse 88 11/12/24 11:40 Resp 16 11/12/24 11:40 BP 87/57 11/12/24 11:40 Pulse Ox 94 L 11/12/24 11:40 FiO2 Intake & Output 11/11/24 11/12/24 11/12/24 18:59 06:59 18:59 Intake Total 1570 540 236 Output Total 1999 2249 165 Balance -430 -1710 -1414 Weight 83 kg Intake: IV 100 Intake, IV Titration 750 Amount Sodium Chloride 0.9% 1, 750 000 ml @ 75 mls/hr IV . [id number] [facility] Rx#:[id number] Oral 720 540 236 Output: Urine 1999 2249 1650 Uretheral (Malik) 1350 Other: Voiding Method Indwelling Catheter Indwelling Catheter Indwelling Catheter - Labs CBC & Chem 7: 11/12/24 07:29 11/12/24 07:29 Labs: Abnormal Lab Results - Last 24 Hours (Table) 11/11/24 11/11/24 11/12/24 Range/Units 16:34 20:20 06:13 WBC (4.50-10.00) 10*3/uL Immature Gran # (0.00-0.04) 10*3/uL Neutrophils # (1.80-7.70) 10*3/uL Monocytes # (0.20-1.00) 10*3/uL Carbon Dioxide (22-30) mmol/L Glucose (74-99) mg/dL POC Glucose (mg/dL) 264 H 226 H 178 H (70-110) mg/dL 11/12/24 11/12/24 11/12/24 Range/Units 07:29 07:29 11:32 WBC 16.13 H (4.50-10.00) 10*3/uL Immature Gran # 0.07 H (0.00-0.04) 10*3/uL Neutrophils # 12.26 H (1.80-7.70) 10*3/uL Monocytes # 1.11 H (0.20-1.00) 10*3/uL Carbon Dioxide 32 H (22-30) mmol/L Glucose 125 H (74-99) mg/dL POC Glucose (mg/dL) 147 H (70-110) mg/dL
--- NOTE | 2024-11-12 15:12 | P.PN ---
Subjective Progress Note Date: 11/12/24 Patient is a 69-year-old female brought in by EMS following a slip and fall in the bathtub. She was giving her granddaughter a bath. Landed on her left chest. Denies head trauma. Denies anticoagulation. Endorses lateral chest tenderness/pain with moving or deep breathing. CT of the chest, abdomen, pelvis remarkable for minimally displaced fractures involving posterior left rib 9 and 10. No pneumothoraces, pleural effusions, contusions. Minimal bilateral peripheral atelectasis. Patient currently being evaluated in the emergency department. Having trouble taking deep breaths secondary to pain. Has received a dose of Dilaudid. Toradol is also ordered. On 2 L/min nasal cannula. SpO2 is 98% on monitor. Respiratory therapist showing her how to use her incentive spirometer. She denies any other injuries. Vital signs are stable. 11/10/2024, patient is being seen for a follow-up. The patient is still having pain and muscle spasms across her left chest. Pain management was consulted r egarding the possibility of giving the patient e nerve block anesthetics and pain control. Otherwise, the patient remains on Dilaudid and she was also given oxycodone 5 mg every 6 hours on a as needed basis. She is also on Toradol 15 mg every 6 hours. She describes her pain to be 10 out of 10 and she is having difficulties using the incentive spirometer. Noted the patient had a fall with trauma to her left rib cage. She is also on a muscle relaxant. The white cell count is at 12.5 with a hemoglobin 13 and a platelet count of 202. Electrolytes are all within normal limits. On 11/11/2024, the patient seems to be much more comfortable. The patient underwent a epidural steroid injection into her laminar at the level of T9-T10. Since then, her pain control is improved considerably. She is more committed in using her incentive spirometer. She remains on 3 L of oxygen by nasal cannula with a pulse ox of 90%. Pain is improved. No new labs are available from today. The patient denies having any other new complaints for now. She is on Lovenox 30 mg subcu for DVT prophylaxis. The patient remains on l normal saline at rate of 75 cc an hour. She is on oxycodone 5 mg every 6 hours on a as needed basis, Robaxin 500 mg p.o. 3 times daily. No altered mentation. No other new complaints otherwise for now. 11/12/2024, patient is being seen for a follow-up. The patient is still on oxygen and she remains on 4 L with a pulse ox of 94%. She is trying to use incentive spirometer. A follow-up chest x-ray was done today and it showed some right lower lobe atelectatic changes. Otherwise, no other acute abnormalities. She is still complaining of pain involving the chest wall on the left post trauma/fall. The white cell count is 16.1. He was 12.9 with a platelet count of 223. BUN is 15 with a creatinine of 0.6. Sodium level is at 139. She is working with physical therapy and she was able to get out of bed today. Doing limited amount of activity. Objective - Vital Signs Vital signs: Vital Signs Temp 98.3 F 11/11/24 20:00 Pulse 72 11/12/24 08:04 Resp 16 11/12/24 03:28 BP 84/40 11/12/24 03:28 Pulse Ox 94 L 11/12/24 07:52 FiO2 Intake & Output 11/11/24 11/12/24 11/12/24 18:59 06:59 18:59 Intake Total 1570 540 118 Output Total 1999 2250 675 Balance -430 -8872 -798 Weight 83 kg Intake: IV 100 Intake, IV Titration 750 Amount Sodium Chloride 0.9% 1, 750 000 ml @ 75 mls/hr IV . [id number] [facility] Rx#:[id number] Oral 720 540 118 Output: Urine 1999 2250 675 Uretheral (Malik) 675 Other: Voiding Method Indwelling Catheter Indwelling Catheter - Exam GENERAL EXAM: Alert, 69-year-old female, not in respiratory distress. The patient remains on 4 L oxygen by nasal cannula. HEAD: Normocephalic and atraumatic EYES: Normal reaction of pupils, equal size. NOSE: Clear with pink turbinates. THROAT: No erythema or exudates. NECK: No masses, no JVD. CHEST: No chest wall deformity. No crepitus, subcutaneous emphysema. LUNGS: Equal air entry with no crackles, wheeze, rhonchi or dullness. No conversational dyspnea or accessory muscle use. Air entry is improved bilaterally and the patient is has ongoing soreness to palpation to her chest. ABDOMEN: No hepatosplenomegaly, active bowel sounds, no guarding or rigidity. SPINE: No scoliosis or deformity SKIN: No rashes CENTRAL NERVOUS SYSTEM: No focal deficits, tone is normal in all 4 extremities. EXTREMITIES: There is no peripheral edema, clubbing, or cyanosis. Peripheral pulses are intact. - Labs CBC & Chem 7: 11/12/24 07:29 11/12/24 07:29 Labs: Abnormal Lab Results - Last 24 Hours (Table) 11/11/24 11/11/24 11/11/24 Range/Units 11:15 16:34 20:20 WBC (4.50-10.00) 10*3/uL Immature Gran # (0.00-0.04) 10*3/uL Neutrophils # (1.80-7.70) 10*3/uL Monocytes # (0.20-1.00) 10*3/uL Carbon Dioxide (22-30) mmol/L Glucose (74-99) mg/dL POC Glucose (mg/dL) 226 H 264 H 226 H (70-110) mg/dL 11/12/24 11/12/24 11/12/24 Range/Units 06:13 07:29 07:29 WBC 16.13 H (4.50-10.00) 10*3/uL Immature Gran # 0.07 H (0.00-0.04) 10*3/uL Neutrophils # 12.26 H (1.80-7.70) 10*3/uL Monocytes # 1.11 H (0.20-1.00) 10*3/uL Carbon Dioxide 32 H (22-30) mmol/L Glucose 125 H (74-99) mg/dL POC Glucose (mg/dL) 178 H (70-110) mg/dL Assessment and Plan Assessment: Mechanical fall Minimally displaced rib fractures involving posterior left rib 9 and 10. No pneumothoraces, pleural effusions, contusions. Minimal bilateral peripheral atelectasis. Severe left-sided chest wall pain with muscle spasms secondary to above, improved post T9-10 epidural interlaminar steroid injection. Acute hypoxic respiratory failure related to shallow breathing pain related and atelectasis, currently on 4 L of oxygen by nasal cannula. Repeat chest x-ray shows atelectatic change in the right lung base. Acute dyspnea, secondary to above, improving Current ongoing tobacco smoker Plan: Wean FiO2 and encourage use of incentive spirometer. Obvious improvement in pain control post epidural interlaminar T9 10 injection. This is a posttraumatic injury to the left rib cage and rib fractures Currently, receiving combination of Dilaudid, Toradol, and Tylenol as needed, the patient is on oxycodone Chest CT reviewed, no pneumothoraces, pleural effusions, or pulmonary contusions. Remains on oxygen, currently on 4 L of O2 nasal cannula Increased use of incentive spirometer Obtain a follow-up chest x-ray in a.m. shows some atelectatic change in the right lung base. The patient needs to work aggressively on the incentive spirometer. Encourage pulmonary toileting/incentive spirometer hourly awake Physical therapy is involved in her care We will continue to follow
[2024-11-12 16:20] LABS: Glucose,Whole Blood 137 mg/dL (70-110)
[2024-11-12 20:11] LABS: Glucose,Whole Blood 143 mg/dL (70-110)
[2024-11-12] MEDS ORDERED: IPRATROPIUM-ALBUTEROL 3 ML NEB INHALATION PRN (21:32)
[2024-11-13 05:57] LABS: Glucose,Whole Blood 113 mg/dL (70-110)
[2024-11-13] MEDS: IPRATROPIUM-ALBUTEROL 3 ML NEB INHALATION SCH (09:28)
--- NOTE | 2024-11-13 10:50 | P.PN ---
Subjective Progress Note Date: 11/13/24 Hospital Course: A 69-year-old female with PMH of Asthma/COPD, 43 pack year smoking history, se asonal allergies, diabetes mellitus, depression, GERD presents to the ED after a mechanical fall. Patient reports bathing her granddaughter, when she stood up to grab soap, she lost her footing landing on her left side. She immediately experienced 20/10 pain which resulted in a syncopal episode. Pain is worse with movement and deep inspiration. Reports SOB as a result of the pain. She denies any chest pain, dizziness, palpitations, fever or chills, cough, nausea or vomiting, changes in urination or bowel habits. No changes in appetite or weight. In the ED he underwent extensive evaluation. BP 100/67, HR 74, T 98.3F, RR 18, 91% on RA. Labs significant for WBC 14.05, glu 171, AST 56, ALT 47. EKG shows NSR. CT chest/abdomen/pelvis confirmed posterior left rib 9th and 10th fracture with 2 mm displacement. Patient is admitted to surgery with medicine on consult. Pain management consulted, underwent epidural nerve block on 11/11. Patient has been retaining urine, Malik catheter was placed. Patient noted to have a history of pelvic prolapse. Urology consulted, recommended to be discharged home with Malik catheter and follow-up in 2 weeks, patient does have history of prior self-catheterization. 11/12: Patient was seen and examined at bedside, she was sitting at the edge of the bed, getting ready to work with physical therapy. Noted significant pain in the rib cage, improved with pain medications, shortness of breath persisting. She is on 4 L nasal cannula today. Lab work showed leukocytosis 16.1. BMP stable 11/13: Seen and examined at bedside, patient gets up to use the bathroom, sit in the chair. States that her pain is not under control, remains on 3 L nasal cannula. Will continue current management, patient to be seen by pain medicine on Thursday. Complained of constipation, MiraLAX added, continued on docusate Pertinent positives and negatives as discussed above, a complete review of systems was performed and all other systems are negative. Vitals Signs Reviewed. General: [nontoxic], [no distress], [appears at stated age] Derm: [warm], [dry] Head: [atraumatic], [normocephalic], [symmetric] Eyes: [EOMI], [no lid lag], [anicteric sclera] Mouth: [no lip lesion], [mucus membranes moist] Cardiovascular: [S1S2 reg], [no murmur] Lungs: Decreased breath sounds bilaterally [no rhonchi, no rales] , [no accessory muscle use] Abdominal: [soft], [ nontender to palpation], [no guarding], [no appreciable organomegaly], active bowel sounds Ext: [no gross muscle atrophy], [no edema], [no contractures] Neuro: [ CN II-XI grossly intact], [no focal neuro deficits] Psych: [Alert], [oriented], [appropriate affect] Assessment and Plan: Acute hypoxic respiratory failure secondary to 9th and 10th posterior left rib fracture SIRS likely secondary to above -Pain management following, status post epidural nerve block on 11/11 -Pain management with Dilaudid 0.5 mg IV Q3H PRN, Toradol 15 mg IV Q6H PRN, Lidocaine patch, Robaxin 500 mg PO TID PRN, Oxy 5 mg PO Q6H PRN. -Pain is still poorly controlled, patient needs to follow-up with pain management hopefully tomorrow - Fall precautions -PT OT consulted -Encourage incentive spirometry -Pulmonary and surgery on board, appreciate recommendations -Repeat chest x-ray showed mild right lower lobe atelectasis Urinary retention Pelvic prolapse -Will be discharged with Malik catheter and follow-up with urology in 2 weeks -Neurology following, appreciate recommendations Constipation: Continue docusate twice daily, added MiraLAX 17 g daily Transaminitis: Outpatient follow-up Asthma/COPD not in acute exacerbation: Continue DuoNeb every 4 hours as needed 43 pack year smoking history: Nicotine patch 14 mg daily. Seasonal allergies: Singulair 10 mg PO QHS. Claritin 10 mg PO QD. Diabetes mellitus: ISS with Accuchecks ACHS along with hypoglycemic precautions. Obtain A1c. Depression: Fluoxetine 20 mg PO QD. GERD: Protonix 40 mg PO QD. I have reviewed the following creative consultant notes: Pulmonary, surgery I have reviewed the results of the following tests: I have ordered the following tests: CBC to monitor leukocytosis I have discussed the care of this patient with the following independent historian: RN, patient came in downgraded to [facility] I have independently interpreted the following test below: As above I have discussed the management of this patient with the following physician: DVT ppx: Lovenox Code status: Full code Objective - Vital Signs Vital signs: Vital Signs Temp 98 F 11/12/24 20:00 Pulse 90 11/13/24 09:37 Resp 18 11/13/24 09:37 BP 100/64 11/13/24 04:00 Pulse Ox 94 L 11/13/24 09:28 FiO2 Intake & Output 11/12/24 11/13/24 11/13/24 18:59 06:59 18:59 Intake Total 236 1080 Output Total 1650 1400 Balance -1414 -320 Weight 83 kg Intake: Oral 236 1080 Output: Urine 1650 1400 Uretheral (Malik) 1350 Other: Voiding Method Indwelling Catheter Indwelling Catheter - Labs CBC & Chem 7: 11/12/24 07:29 11/12/24 07:29 Labs: Abnormal Lab Results - Last 24 Hours (Table) 11/12/24 11/12/24 11/12/24 Range/Units 11:32 16:19 20:10 POC Glucose (mg/dL) 147 H 137 H 143 H (70-110) mg/dL 11/13/24 Range/Units 05:55 POC Glucose (mg/dL) 113 H (70-110) mg/dL
[2024-11-13 11:08] LABS: Basophils # (A) 0.05 10*3/uL (0.00-0.10); Basophils % (A) 0.4 %; Eosinophils # (A) 0.24 10*3/uL (0.04-0.35); Eosinophils % (A) 1.7 %; HCT 37.6 % (37.2-46.3); HGB 12.5 g/dL (12.0-15.0); Lymphocytes # (A) 1.92 10*3/uL (0.90-5.00); Lymphocytes % (A) 13.9 %; MCH 31.9 pg (27.0-32.0); MCHC 33.2 g/dL (32.0-37.0); MCV 95.9 fL (80.0-97.0); Mean Platelet Volume 9.7 fL (9.5-12.2); Monocytes % (A) 6.5 %; Neutrophils % (A) 77.1 %; Platelet Count 189 10*3/uL (140-440); RBC 3.92 10*6/uL (4.10-5.20); RDW 12.8 % (11.5-14.5); WBC 13.77 10*3/uL (4.50-10.00)
[2024-11-13 11:26] LABS: Glucose,Whole Blood 131 mg/dL (70-110)
--- NOTE | 2024-11-13 11:35 | P.PN ---
Progress Note - Text Progress Note Date: 11/13/24 CHIEF COMPLAINT: Fall with left-sided rib fractures HISTORY OF PRESENT ILLNESS: No acute events overnight. Pain is controlled. PHYSICAL EXAM: VITAL SIGNS: Reviewed. GENERAL: Well-developed in no acute distress. HEENT: No sclera icterus. Extraocular movements grossly intact. Moist buccal mucosa. Head is atraumatic, normocephalic. ABDOMEN: Soft. Nondistended. Nontender. NEUROLOGIC: Alert and oriented. Cranial nerves II through XII grossly intact. ASSESSMENT: 1. Mechanical fall with trauma to the left rib cage 2. Fracture of Posterior left rib #9 and 10 due to fall 3. History of COPD PLAN: - Continue pain management - Regular Diet - Encourage patient to increase activity level - Encouraged incentive spirometer use - GI prophylaxis Protonix and DVT prophylaxis Lovenox Shai Rebollar DO [facility] [phone]
--- NOTE | 2024-11-13 13:42 | P.PN ---
Subjective Progress Note Date: 11/13/24 Patient is a 69-year-old female brought in by EMS following a slip and fall in the bathtub. She was giving her granddaughter a bath. Landed on her left chest. Denies head trauma. Denies anticoagulation. Endorses lateral chest tenderness/pain with moving or deep breathing. CT of the chest, abdomen, pelvis remarkable for minimally displaced fractures involving posterior left rib 9 and 10. No pneumothoraces, pleural effusions, contusions. Minimal bilateral peripheral atelectasis. Patient currently being evaluated in the emergency department. Having trouble taking deep breaths secondary to pain. Has received a dose of Dilaudid. Toradol is also ordered. On 2 L/min nasal cannula. SpO2 is 98% on monitor. Respiratory therapist showing her how to use her incentive spirometer. She denies any other injuries. Vital signs are stable. 11/10/2024, patient is being seen for a follow-up. The patient is still having pain and muscle spasms across her left chest. Pain management was consulted r egarding the possibility of giving the patient e nerve block anesthetics and pain control. Otherwise, the patient remains on Dilaudid and she was also given oxycodone 5 mg every 6 hours on a as needed basis. She is also on Toradol 15 mg every 6 hours. She describes her pain to be 10 out of 10 and she is having difficulties using the incentive spirometer. Noted the patient had a fall with trauma to her left rib cage. She is also on a muscle relaxant. The white cell count is at 12.5 with a hemoglobin 13 and a platelet count of 202. Electrolytes are all within normal limits. On 11/11/2024, the patient seems to be much more comfortable. The patient underwent a epidural steroid injection into her laminar at the level of T9-T10. Since then, her pain control is improved considerably. She is more committed in using her incentive spirometer. She remains on 3 L of oxygen by nasal cannula with a pulse ox of 90%. Pain is improved. No new labs are available from today. The patient denies having any other new complaints for now. She is on Lovenox 30 mg subcu for DVT prophylaxis. The patient remains on l normal saline at rate of 75 cc an hour. She is on oxycodone 5 mg every 6 hours on a as needed basis, Robaxin 500 mg p.o. 3 times daily. No altered mentation. No other new complaints otherwise for now. 11/12/2024, patient is being seen for a follow-up. The patient is still on oxygen and she remains on 4 L with a pulse ox of 94%. She is trying to use incentive spirometer. A follow-up chest x-ray was done today and it showed some right lower lobe atelectatic changes. Otherwise, no other acute abnormalities. She is still complaining of pain involving the chest wall on the left post trauma/fall. The white cell count is 16.1. He was 12.9 with a platelet count of 223. BUN is 15 with a creatinine of 0.6. Sodium level is at 139. She is working with physical therapy and she was able to get out of bed today. Doing limited amount of activity. On 11/13/2024, the patient is grading her chest wall pain to be 8 out of 10. She is using the incentive spirometer. She was weaned down to 2 L of oxygen by nasal cannula and her current pulse ox is around 90%. Afebrile. Hemodynamically stable. She is still on DuoNeb nebulized treatments [id number]. IV fluids are currently in the form of normal saline at rate of 75 cc an hour. She was provided a nicotine patch. She is receiving oxycodone 5 mg every 6 hours for pain control and she also has a lidocaine patch and Robaxin. The blood work shows a white cell count of 13.7, hemoglobin is at 12.5. Platelet count is at 189. The most recent chest x-ray is from 11/12/2024 and it showed atelectatic changes in the right lung base otherwise no other acute abnormalities noted. Objective - Vital Signs Vital signs: Vital Signs Temp 98 F 11/12/24 20:00 Pulse 90 11/13/24 09:37 Resp 18 11/13/24 09:37 BP 100/64 11/13/24 04:00 Pulse Ox 94 L 11/13/24 09:28 FiO2 Intake & Output 11/12/24 11/13/24 11/13/24 18:59 06:59 18:59 Intake Total 236 1080 Output Total 1650 1400 Balance -1414 -320 Weight 83 kg Intake: Oral 236 1080 Output: Urine 1650 1400 Uretheral (Malik) 1350 Other: Voiding Method Indwelling Catheter Indwelling Catheter - Exam GENERAL EXAM: Alert, 69-year-old female, not in respiratory distress. The patient remains on 2 L oxygen by nasal cannula. HEAD: Normocephalic and atraumatic EYES: Normal reaction of pupils, equal size. NOSE: Clear with pink turbinates. THROAT: No erythema or exudates. NECK: No masses, no JVD. CHEST: No chest wall deformity. No crepitus, subcutaneous emphysema. LUNGS: Equal air entry with no crackles, wheeze, rhonchi or dullness. No conversational dyspnea or accessory muscle use. Air entry is improved bilaterally and the patient is has ongoing soreness to palpation to her chest. ABDOMEN: No hepatosplenomegaly, active bowel sounds, no guarding or rigidity. SPINE: No scoliosis or deformity SKIN: No rashes CENTRAL NERVOUS SYSTEM: No focal deficits, tone is normal in all 4 extremities. EXTREMITIES: There is no peripheral edema, clubbing, or cyanosis. Peripheral pulses are intact. - Labs CBC & Chem 7: 11/13/24 10:55 11/12/24 07:29 Labs: Abnormal Lab Results - Last 24 Hours (Table) 11/12/24 11/12/24 11/12/24 Range/Units 11:32 16:19 20:10 POC Glucose (mg/dL) 147 H 137 H 143 H (70-110) mg/dL 11/13/24 Range/Units 05:55 POC Glucose (mg/dL) 113 H (70-110) mg/dL Assessment and Plan Assessment: Mechanical fall Minimally displaced rib fractures involving posterior left rib 9 and 10. No pneumothoraces, pleural effusions, contusions. Minimal bilateral peripheral atelectasis. Severe left-sided chest wall pain with muscle spasms secondary to above, improved post T9-10 epidural interlaminar steroid injection. Acute hypoxic respiratory failure related to shallow breathing pain related and atelectasis, currently on 2 L of oxygen by nasal cannula. Repeat chest x-ray shows atelectatic change in the right lung base from 11/11/2024. Acute dyspnea, secondary to above, improving Current ongoing tobacco smoker Plan: Wean FiO2 and encourage use of incentive spirometer. Currently the patient is on 2 L of oxygen by nasal cannula. Obvious improvement in pain control post epidural interlaminar T9 10 injection. This is a posttraumatic injury to the left rib cage and rib fractures Currently, receiving combination of Dilaudid, Toradol, and Tylenol as needed, the patient is on oxycodone Chest CT reviewed, no pneumothoraces, pleural effusions, or pulmonary contusions. Encouraged the use of incentive spirometer Most recent chest x-ray showing atelectatic change in the right lung base. The patient needs to work aggressively on the incentive spirometer. Encourage pulmonary toileting/incentive spirometer hourly awake Physical therapy is involved in her care We will continue to follow Time with Patient: Greater than 30
[2024-11-13 16:26] LABS: Glucose,Whole Blood 139 mg/dL (70-110)
[2024-11-13] MEDS: SODIUM CHLORIDE 0.65% NASAL SPRAY 44 ML BTL NASAL PRN (20:50)
[2024-11-13] MEDS: guaiFENesin 600 MG TABLET.ER PO PRN (20:51)
[2024-11-13 21:18] LABS: Glucose,Whole Blood 170 mg/dL (70-110)
[2024-11-13] MEDS: polyethylene glycoL 3350 17 GM POWD.PACK PO SCH (22:57)
[2024-11-14 05:55] LABS: Glucose,Whole Blood 131 mg/dL (70-110)
[2024-11-14 07:56] LABS: Basophils # (A) 0.04 10*3/uL (0.00-0.10); Basophils % (A) 0.2 %; Eosinophils # (A) 0.23 10*3/uL (0.04-0.35); Eosinophils % (A) 1.3 %; HCT 39.9 % (37.2-46.3); HGB 13.2 g/dL (12.0-15.0); Lymphocytes # (A) 2.83 10*3/uL (0.90-5.00); Lymphocytes % (A) 16.5 %; MCH 31.4 pg (27.0-32.0); MCHC 33.1 g/dL (32.0-37.0); Mean Platelet Volume 9.8 fL (9.5-12.2); Monocytes # (A) 1.16 10*3/uL (0.20-1.00); Monocytes % (A) 6.8 %; Neutrophils # (A) 12.82 10*3/uL (1.80-7.70); Neutrophils % (A) 74.7 %; Platelet Count 207 10*3/uL (140-440); RDW 12.6 % (11.5-14.5); WBC 17.17 10*3/uL (4.50-10.00)
--- NOTE | 2024-11-14 08:01 | XR ---
EXAMINATION TYPE: XR chest 1V portable DATE OF EXAM: 11/14/2024 7:53 AM COMPARISON: 11/12/2024 CLINICAL INDICATION: Female, 69 years old with history of worsening hypoxia, , FINDINGS: ACDF hardware. Heart borderline in size. Small bilateral pleural effusions. Improving patchy right ba silar opacity. IMPRESSION: COPD with increasing small bilateral pleural effusions with adjacent atelectasis and/or consolidation . The more strandy areas of atelectasis previously at the right base shows some improvement. [facility], Workstation: [facility], 11/14/2024 7:59 AM
[2024-11-14 08:06] LABS: African American GFR (CKD) >90 (>60 ml/min/1.73 sqM); Anion Gap 4 mmol/L; Blood Urea Nitrogen 13 mg/dL (7-17); Carbon Dioxide 30 mmol/L (22-30); Chloride 105 mmol/L (98-107); Glucose 133 mg/dL (74-99); Non-African American GFR(CKD) >90 (>60 ml/min/1.73 sqM); Potassium 4.2 mmol/L (3.5-5.1); Sodium 139 mmol/L (137-145)
[2024-11-14] MEDS ORDERED: PANTOPRAZOLE 40 MG/10 ML VIAL IVP SCH (10:45)
[2024-11-14 11:32] LABS: Glucose,Whole Blood 130 mg/dL (70-110)
--- NOTE | 2024-11-14 13:40 | P.PN ---
Progress Note - Text Progress Note Date: 11/14/24 CHIEF COMPLAINT: Fall with left-sided rib fractures HISTORY OF PRESENT ILLNESS: No acute events overnight. Pain is controlled at rest but worse with cough. Increased oxygen requirements today. No bowel movement today. PHYSICAL EXAM: VITAL SIGNS: Reviewed. GENERAL: Well-developed in no acute distress. HEENT: No sclera icterus. Extraocular movements grossly intact. Moist buccal mucosa. Head is atraumatic, normocephalic. ABDOMEN: Soft. Nondistended. Nontender. NEUROLOGIC: Alert and oriented. Cranial nerves II through XII grossly intact. ASSESSMENT: 1. Mechanical fall with trauma to the left rib cage 2. Fracture of Posterior left rib #9 and 10 due to fall 3. History of COPD PLAN: - Continue pain management - Regular Diet - Encourage patient to increase activity level - Encouraged incentive spirometer use - GI prophylaxis Protonix and DVT prophylaxis Lovenox Attestation Patient seen and examined at bedside. Chief complaint of follow-up with multiple left-sided rib fractures. Patient having some difficulty with respiration today and states she feels short of breath with increased oxygen requirements. Chest x-ray showing some pleural effusions. CTA of the chest performed with no evidence of pulmonary embolism. Continue pulmonology recommendations. Continue to increase activities. Miranda Hooper,
--- NOTE | 2024-11-14 14:05 | P.PN ---
Subjective Progress Note Date: 11/14/24 Hospital Course: A 69-year-old female with PMH of Asthma/COPD, 43 pack year smoking history, se asonal allergies, diabetes mellitus, depression, GERD presents to the ED after a mechanical fall. Patient reports bathing her granddaughter, when she stood up to grab soap, she lost her footing landing on her left side. She immediately experienced 20/10 pain which resulted in a syncopal episode. Pain is worse with movement and deep inspiration. Reports SOB as a result of the pain. She denies any chest pain, dizziness, palpitations, fever or chills, cough, nausea or vomiting, changes in urination or bowel habits. No changes in appetite or weight. In the ED he underwent extensive evaluation. BP 100/67, HR 74, T 98.3F, RR 18, 91% on RA. Labs significant for WBC 14.05, glu 171, AST 56, ALT 47. EKG shows NSR. CT chest/abdomen/pelvis confirmed posterior left rib 9th and 10th fracture with 2 mm displacement. Patient is admitted to surgery with medicine on consult. Pain management consulted, underwent epidural nerve block on 11/11. Patient has been retaining urine, Malik catheter was placed. Patient noted to have a history of pelvic prolapse. Urology consulted, recommended to be discharged home with Malik catheter and follow-up in 2 weeks, patient does have history of prior self-catheterization. 11/12: Patient was seen and examined at bedside, she was sitting at the edge of the bed, getting ready to work with physical therapy. Noted significant pain in the rib cage, improved with pain medications, shortness of breath persisting. She is on 4 L nasal cannula today. Lab work showed leukocytosis 16.1. BMP stable 11/13: Seen and examined at bedside, patient gets up to use the bathroom, sit in the chair. States that her pain is not under control, remains on 3 L nasal cannula. Will continue current management, patient to be seen by pain medicine on Thursday. Complained of constipation, MiraLAX added, continued on docusate 11/14, overnight patient became more hypoxic and requiring more oxygen, was eventually placed on 4 or 5 L, now went up to 6 L. Repeat chest x-ray ordered this morning and showed increasing small bilateral pleural effusions, adjacent atelectasis. WBC up to 17.17, D-dimer ordered and came back elevated, CT chest ordered and pending Pertinent positives and negatives as discussed above, a complete review of systems was performed and all other systems are negative. Vitals Signs Reviewed. General: [nontoxic], [in respiratory distress Derm: [warm], [dry] Head: [atraumatic], [normocephalic], [symmetric] Eyes: [EOMI], [no lid lag], [anicteric sclera] Mouth: [no lip lesion], [mucus membranes moist] Cardiovascular: [S1S2 reg], [no murmur] Lungs: Decreased breath sounds bilaterally [no rhonchi, no rales] , [], accessory muscle use Abdominal: [soft], [ nontender to palpation], [no guarding], [no appreciable organomegaly], active bowel sounds Ext: [no gross muscle atrophy], [no edema], [no contractures] Neuro: [ CN II-XI grossly intact], [no focal neuro deficits] Psych: [Alert], [oriented], [appropriate affect] Assessment and Plan: Acute hypoxic respiratory failure secondary to 9th and 10th posterior left rib fracture Elevated D-dimer SIRS likely secondary to above -Pain management following, status post epidural nerve block on 11/11 -Pain management with Dilaudid 0.5 mg IV Q3H PRN, Toradol 15 mg IV Q6H PRN, Lidocaine patch, Robaxin 500 mg PO TID PRN, Oxy 5 mg PO Q6H PRN. -Pain is still poorly controlled, patient needs to follow-up with pain management hopefully tomorrow - Fall precautions -PT OT consulted -Encourage incentive spirometry -Pulmonary and surgery on board, appreciate recommendations - Repeat chest x-ray as above, D-dimer elevated, CTA ordered and pending Urinary retention Pelvic prolapse -Will be discharged with Malik catheter and follow-up with urology in 2 weeks -Neurology following, appreciate recommendations Constipation: Continue docusate twice daily, added MiraLAX 17 g daily Transaminitis: Outpatient follow-up Asthma/COPD not in acute exacerbation: Continue DuoNeb every 4 hours as needed 43 pack year smoking history: Nicotine patch 14 mg daily. Seasonal allergies: Singulair 10 mg PO QHS. Claritin 10 mg PO QD. Diabetes mellitus: ISS with Accuchecks ACHS along with hypoglycemic precautions. Obtain A1c. Depression: Fluoxetine 20 mg PO QD. GERD: Protonix 40 mg PO QD. I have reviewed the following beauty sales consultant notes: Pulmonary, surgery I have reviewed the results of the following tests: I have ordered the following tests: CBC to monitor leukocytosis, D-dimer, chest x-ray, CTA chest I have discussed the care of this patient with the following independent historian: FELICITAS I have independently interpreted the following test below: As above I have discussed the management of this patient with the following physician: DVT ppx: Lovenox Code status: Full code Objective - Vital Signs Vital signs: Vital Signs Temp 98.8 F 11/14/24 12:20 Pulse 86 11/14/24 13:06 Resp 20 11/14/24 12:20 BP 109/71 11/14/24 12:20 Pulse Ox 99 11/14/24 12:20 FiO2 Intake & Output 11/13/24 11/14/24 11/14/24 18:59 06:59 18:59 Intake Total 480 760 Output Total 2100 1425 Balance -1620 -665 Weight 93.5 kg Intake: IV 10 Invasive Line 2 10 Intake, IV Titration 750 Amount Sodium Chloride 0.9% 1, 750 000 ml @ 75 mls/hr IV . [id number] [facility] Rx#:[id number] Oral 480 Output: Urine 2100 1425 Other: Voiding Method Indwelling Catheter Indwelling Catheter Indwelling Catheter - Labs CBC & Chem 7: 11/14/24 07:37 11/14/24 07:37 Labs: Abnormal Lab Results - Last 24 Hours (Table) 11/13/24 11/13/24 11/14/24 Range/Units 16:25 21:16 05:54 WBC (4.50-10.00) 10*3/uL Immature Gran # (0.00-0.04) 10*3/uL Neutrophils # (1.80-7.70) 10*3/uL Monocytes # (0.20-1.00) 10*3/uL D-Dimer (<0.60) mg/L FEU Glucose (74-99) mg/dL POC Glucose (mg/dL) 139 H 170 H 131 H (70-110) mg/dL 11/14/24 11/14/24 11/14/24 Range/Units 07:37 07:37 10:49 WBC 17.17 H (4.50-10.00) 10*3/uL Immature Gran # 0.09 H (0.00-0.04) 10*3/uL Neutrophils # 12.82 H (1.80-7.70) 10*3/uL Monocytes # 1.16 H (0.20-1.00) 10*3/uL D-Dimer 3.61 H (<0.60) mg/L FEU Glucose 133 H (74-99) mg/dL POC Glucose (mg/dL) (70-110) mg/dL 11/14/24 Range/Units 11:31 WBC (4.50-10.00) 10*3/uL Immature Gran # (0.00-0.04) 10*3/uL Neutrophils # (1.80-7.70) 10*3/uL Monocytes # (0.20-1.00) 10*3/uL D-Dimer (<0.60) mg/L FEU Glucose (74-99) mg/dL POC Glucose (mg/dL) 130 H (70-110) mg/dL
--- NOTE | 2024-11-14 15:24 | CT ---
EXAMINATION TYPE: CT chest angio for PE CT DLP: 399.1 mGycm, Automated exposure control for dose reduction was used. DATE OF EXAM: 11/14/2024 3:00 PM COMPARISON: Chest radiograph from same day. CT chest abdomen pelvis 11/08/2024 CLINICAL INDICATION:Female, 69 years old with history of Dyspnea; Dyspnea TECHNIQUE/CONTRAST: CTA scan of the thorax is performed with IV Contrast, patient injected with 100 mL of , pulmonary emb olism protocol. MIP images are created and reviewed. FINDINGS: Pulmonary Artery: There is no evidence for a filling defect within the pulmonary vasculature to sugge st acute pulmonary embolism. The pulmonary artery is of normal size. Lungs/Pleura: No pneumothorax. Small left and trace right pleural effusions with associated atelectas is. Patchy reticular groundglass opacities within the right upper lobe with mosaic attenuation. [place] tion of the right hemidiaphragm. Airway: Large airways are patent. Heart: Size within normal limits.No pericardial effusion. No significant coronary artery calcificatio ns. Vasculature: No evidence of aortic aneurysm. Mild atherosclerotic calcification of the aorta and its branches. Mediastinum: No gross evidence of adenopathy. Musculoskeletal: Redemonstration of subacute nondisplaced left sided rib fractures involving the ante rior left fifth, sixth and seventh ribs with additional left lateral eighth and posterior ninth and 1 0th ribs. No subcutaneous emphysema identified. Partial visualization anterior cervical fusion hardwa re. Soft Tissues: Unremarkable. Lower neck: No significant findings. Upper Abdomen: Gallbladder is surgically absent.. IMPRESSION: 1. No evidence of pulmonary embolism. 2. New reticular mosaic groundglass opacities within the right upper lung concerning for atypical pne umonia. 3. New small left and trace right pleural effusion with associated atelectasis. 4. Redemonstration of subacute nondisplaced left sided rib fractures involving the anterior left fift h, sixth and seventh ribs with additional left lateral eighth and posterior ninth and 10th ribs. [facility], , 11/14/2024 3:22 PM
--- NOTE | 2024-11-14 15:35 | P.PN ---
Subjective Progress Note Date: 11/14/24 Principal diagnosis: Mechanical fall with minimally displaced rib fractures involving the left rib 9th and 10th. Patient is a 69-year-old female brought in by EMS following a slip and fall in the bathtub. She was giving her granddaughter a bath. Landed on her left chest. Denies head trauma. Denies anticoagulation. Endorses lateral chest tenderness/pain with moving or deep breathing. CT of the chest, abdomen, pelvis remarkable for minimally displaced fractures involving posterior left rib 9 and 10. No pneumothoraces, pleural effusions, contusions. Minimal bilateral peripheral atelectasis. Patient currently being evaluated in the emergency department. Having trouble taking deep breaths secondary to pain. Has received a dose of Dilaudid. Toradol is also ordered. On 2 L/min nasal cannula. SpO2 is 98% on monitor. Respiratory therapist showing her how to use her incentive spirometer. She denies any other injuries. Vital signs are stable. 11/10/2024, patient is being seen for a follow-up. The patient is still having pain and muscle spasms across her left chest. Pain management was consulted regarding the possibility of giving the patient e nerve block anesthetics and pain control. Otherwise, the patient remains on Dilaudid and she was also given oxycodone 5 mg every 6 hours on a as needed basis. She is also on Toradol 15 mg every 6 hours. She describes her pain to be 10 out of 10 and she is having difficulties using the incentive spirometer. Noted the patient had a fall with trauma to her left rib cage. She is also on a muscle relaxant. The white cell count is at 12.5 with a hemoglobin 13 and a platelet count of 202. Electrolytes are all within normal limits. On 11/11/2024, the patient seems to be much more comfortable. The patient underwent a epidural steroid injection into her laminar at the level of T9-T10. Since then, her pain control is improved considerably. She is more committed in using her incentive spirometer. She remains on 3 L of oxygen by nasal cannula with a pulse ox of 90%. Pain is improved. No new labs are available from today. The patient denies having any other new complaints for now. She is on Lovenox 30 mg subcu for DVT prophylaxis. The patient remains on l normal saline at rate of 75 cc an hour. She is on oxycodone 5 mg every 6 hours on a as needed basis, Robaxin 500 mg p.o. 3 times daily. No altered mentation. No other new complaints otherwise for now. 11/12/2024, patient is being seen for a follow-up. The patient is still on oxygen and she remains on 4 L with a pulse ox of 94%. She is trying to use incentive spirometer. A follow-up chest x-ray was done today and it showed some right lower lobe atelectatic changes. Otherwise, no other acute abnormalities. She is still complaining of pain involving the chest wall on the left post trauma/fall. The white cell count is 16.1. He was 12.9 with a platelet count of 223. BUN is 15 with a creatinine of 0.6. Sodium level is at 139. She is working with physical therapy and she was able to get out of bed today. Doing limited amount of activity. On 11/13/2024, the patient is grading her chest wall pain to be 8 out of 10. She is using the incentive spirometer. She was weaned down to 2 L of oxygen by nasal cannula and her current pulse ox is around 90%. Afebrile. Hemodynamically stable. She is still on DuoNeb nebulized treatments [id number]. IV fluids are currently in the form of normal saline at rate of 75 cc an hour. She was provided a nicotine patch. She is receiving oxycodone 5 mg every 6 hours for pain control and she also has a lidocaine patch and Robaxin. The blood work shows a white cell count of 13.7, hemoglobin is at 12.5. Platelet count is at 189. The most recent chest x-ray is from 11/12/2024 and it showed atelectatic changes in the right lung base otherwise no other acute abnormalities noted. Patient was seen today on 11/15/2024, still complaining of pain, she has intermittent cough, patient is supposed to have CT angiogram of the chest today. Labs showed leukocytosis WBC of 17.17 hemoglobin is 13.2 electrolytes are normal renal profile is normal D-dimer is elevated at 3.[address] angiogram was ordered by admitting physician. Objective - Vital Signs Vital signs: Vital Signs Temp 98.8 F 11/14/24 12:20 Pulse 86 11/14/24 13:06 Resp 20 11/14/24 12:20 BP 109/71 11/14/24 12:20 Pulse Ox 99 11/14/24 12:20 FiO2 Intake & Output 11/13/24 11/14/24 11/14/24 18:59 06:59 18:59 Intake Total 480 760 Output Total 2100 1425 Balance -1620 -665 Weight 93.5 kg Intake: IV 10 Invasive Line 2 10 Intake, IV Titration 750 Amount Sodium Chloride 0.9% 1, 750 000 ml @ 75 mls/hr IV . [id number] [facility] Rx#:[id number] Oral 480 Output: Urine 2100 1425 Other: Voiding Method Indwelling Catheter Indwelling Catheter Indwelling Catheter - Exam GENERAL EXAM: Alert, 69-year-old female, not in respiratory distress. On 2 L nasal cannula HEAD: Normocephalic and atraumatic EYES: Normal reaction of pupils, equal size. NOSE: Clear with pink turbinates. THROAT: No erythema or exudates. NECK: No masses, no JVD. CHEST: No chest wall deformity. No crepitus, subcutaneous emphysema. LUNGS: Equal air entry with no crackles, wheeze, rhonchi or dullness. No conversational dyspnea or accessory muscle use. Air entry is improved bilaterally and the patient is has ongoing soreness to palpation to her chest. ABDOMEN: No hepatosplenomegaly, active bowel sounds, no guarding or rigidity. SPINE: No scoliosis or deformity SKIN: No rashes CENTRAL NERVOUS SYSTEM: Alert oriented x 3 no focal deficit EXTREMITIES: No clubbing edema or cyanosis - Labs CBC & Chem 7: 11/14/24 07:37 11/14/24 07:37 Labs: Abnormal Lab Results - Last 24 Hours (Table) 11/13/24 11/13/24 11/14/24 Range/Units 16:25 21:16 05:54 WBC (4.50-10.00) 10*3/uL Immature Gran # (0.00-0.04) 10*3/uL Neutrophils # (1.80-7.70) 10*3/uL Monocytes # (0.20-1.00) 10*3/uL D-Dimer (<0.60) mg/L FEU Glucose (74-99) mg/dL POC Glucose (mg/dL) 139 H 170 H 131 H (70-110) mg/dL 11/14/24 11/14/24 11/14/24 Range/Units 07:37 07:37 10:49 WBC 17.17 H (4.50-10.00) 10*3/uL Immature Gran # 0.09 H (0.00-0.04) 10*3/uL Neutrophils # 12.82 H (1.80-7.70) 10*3/uL Monocytes # 1.16 H (0.20-1.00) 10*3/uL D-Dimer 3.61 H (<0.60) mg/L FEU Glucose 133 H (74-99) mg/dL POC Glucose (mg/dL) (70-110) mg/dL 11/14/24 Range/Units 11:31 WBC (4.50-10.00) 10*3/uL Immature Gran # (0.00-0.04) 10*3/uL Neutrophils # (1.80-7.70) 10*3/uL Monocytes # (0.20-1.00) 10*3/uL D-Dimer (<0.60) mg/L FEU Glucose (74-99) mg/dL POC Glucose (mg/dL) 130 H (70-110) mg/dL Assessment and Plan Assessment: Impression: Mechanical fall Minimally displaced rib fractures involving posterior left rib 9 and 10. No pneumothoraces, pleural effusions, contusions. Severe left-sided chest wall pain with muscle spasms secondary to above, improved post T9-10 epidural interlaminar steroid injection. Acute hypoxic respiratory failure related to shallow breathing pain related and atelectasis, currently on 2 L of oxygen by nasal cannula. Repeat chest x-ray shows atelectatic change in the right lung base from 11/11/2024. Acute dyspnea, secondary to above, improving Current ongoing tobacco smoker Elevated D-dimer with shortness of breath, CT angiogram is pending. Recommendations: Continue present supportive care measures Continue pain management Continue incentive spirometry Continue bronchodilators Continue physical therapy CT angiogram of the chest to be done today Will continue to follow Time with Patient: Less than 30
[2024-11-14 16:50] LABS: Glucose,Whole Blood 113 mg/dL (70-110)
[2024-11-14 20:56] LABS: Glucose,Whole Blood 168 mg/dL (70-110)
[2024-11-15] MEDS: PANTOPRAZOLE 40 MG TABLET PO SCH (05:33)
[2024-11-15 05:40] LABS: Glucose,Whole Blood 94 mg/dL (70-110)
[2024-11-15 10:39] LABS: Basophils # (A) 0.05 10*3/uL (0.00-0.10); Basophils % (A) 0.4 %; Eosinophils # (A) 0.35 10*3/uL (0.04-0.35); Eosinophils % (A) 2.8 %; HCT 36.7 % (37.2-46.3); HGB 12.1 g/dL (12.0-15.0); Lymphocytes # (A) 2.21 10*3/uL (0.90-5.00); Lymphocytes % (A) 17.5 %; MCH 31.6 pg (27.0-32.0); MCV 95.8 fL (80.0-97.0); Mean Platelet Volume 9.7 fL (9.5-12.2); Monocytes # (A) 0.74 10*3/uL (0.20-1.00); Monocytes % (A) 5.9 %; Neutrophils # (A) 9.21 10*3/uL (1.80-7.70); Platelet Count 198 10*3/uL (140-440); RBC 3.83 10*6/uL (4.10-5.20); RDW 12.3 % (11.5-14.5); WBC 12.61 10*3/uL (4.50-10.00)
[2024-11-15 11:06] LABS: African American GFR (CKD) >90 (>60 ml/min/1.73 sqM); Anion Gap 1 mmol/L; Blood Urea Nitrogen 11 mg/dL (7-17); Calcium 9.1 mg/dL (8.4-10.2); Carbon Dioxide 34 mmol/L (22-30); Chloride 105 mmol/L (98-107); Glucose 103 mg/dL (74-99); Non-African American GFR(CKD) >90 (>60 ml/min/1.73 sqM); Potassium 3.7 mmol/L (3.5-5.1); Sodium 140 mmol/L (137-145)
[2024-11-15 11:27] LABS: Glucose,Whole Blood 167 mg/dL (70-110)
--- NOTE | 2024-11-15 14:08 | P.PN ---
Subjective Progress Note Date: 11/15/24 No acute events Objective - Vital Signs Vital signs: Vital Signs Temp 97.5 F L 11/15/24 12:55 Pulse 86 11/15/24 12:55 Resp 16 11/15/24 12:55 BP 98/64 11/15/24 12:55 Pulse Ox 96 11/15/24 12:55 FiO2 Intake & Output 11/14/24 11/15/24 11/15/24 18:59 06:59 18:59 Intake Total 500 150 240 Output Total 1050 2100 Balance -550 -1950 240 Weight 93 kg Intake: Intake, IV Titration 500 150 Amount Sodium Chloride 0.9% 1, 500 150 000 ml @ 75 mls/hr IV . [id number] [facility] Rx#:[id number] Oral 240 Output: Urine 1050 2100 Uretheral (Malik) 1050 Other: Voiding Method Indwelling Catheter Indwelling Catheter Indwelling Catheter # Bowel Movements 0 1 - Constitutional General appearance: Present: cooperative, no acute distress - Respiratory Details: On nasal cannula, no difficulty with deep respiration - Psychiatric Psychiatric: Present: A&O x's 3 - Labs CBC & Chem 7: 11/15/24 10:22 11/15/24 10:22 Labs: Abnormal Lab Results - Last 24 Hours (Table) 11/14/24 11/14/24 11/15/24 Range/Units 16:49 20:55 10:22 WBC 12.61 H (4.50-10.00) 10*3/uL RBC 3.83 L (4.10-5.20) 10*6/uL Hct 36.7 L (37.2-46.3) % Immature Gran # 0.05 H (0.00-0.04) 10*3/uL Neutrophils # 9.21 H (1.80-7.70) 10*3/uL Carbon Dioxide (22-30) mmol/L Glucose (74-99) mg/dL POC Glucose (mg/dL) 113 H 168 H (70-110) mg/dL 11/15/24 11/15/24 Range/Units 10:22 11:26 WBC (4.50-10.00) 10*3/uL RBC (4.10-5.20) 10*6/uL Hct (37.2-46.3) % Immature Gran # (0.00-0.04) 10*3/uL Neutrophils # (1.80-7.70) 10*3/uL Carbon Dioxide 34 H (22-30) mmol/L Glucose 103 H (74-99) mg/dL POC Glucose (mg/dL) 167 H (70-110) mg/dL Assessment and Plan Plan: 69-year-old female with left-sided rib fractures. CTA of the chest was performe d with no evidence of pulmonary embolism. Possibility of atypical pneumonia is noted. Patient's leukocytosis improving. Continue medical and pulmonology recommendations. Continue analgesia for rib fractures.
--- NOTE | 2024-11-15 14:16 | P.PN ---
Subjective Progress Note Date: 11/15/24 Principal diagnosis: Mechanical fall with minimally displaced rib fractures involving the left rib 9th and 10th. Patient is a 69-year-old female brought in by EMS following a slip and fall in the bathtub. She was giving her granddaughter a bath. Landed on her left chest. Denies head trauma. Denies anticoagulation. Endorses lateral chest tenderness/pain with moving or deep breathing. CT of the chest, abdomen, pelvis remarkable for minimally displaced fractures involving posterior left rib 9 and 10. No pneumothoraces, pleural effusions, contusions. Minimal bilateral peripheral atelectasis. Patient currently being evaluated in the emergency department. Having trouble taking deep breaths secondary to pain. Has received a dose of Dilaudid. Toradol is also ordered. On 2 L/min nasal cannula. SpO2 is 98% on monitor. Respiratory therapist showing her how to use her incentive spirometer. She denies any other injuries. Vital signs are stable. 11/10/2024, patient is being seen for a follow-up. The patient is still having pain and muscle spasms across her left chest. Pain management was consulted regarding the possibility of giving the patient e nerve block anesthetics and pain control. Otherwise, the patient remains on Dilaudid and she was also given oxycodone 5 mg every 6 hours on a as needed basis. She is also on Toradol 15 mg every 6 hours. She describes her pain to be 10 out of 10 and she is having difficulties using the incentive spirometer. Noted the patient had a fall with trauma to her left rib cage. She is also on a muscle relaxant. The white cell count is at 12.5 with a hemoglobin 13 and a platelet count of 202. Electrolytes are all within normal limits. On 11/11/2024, the patient seems to be much more comfortable. The patient underwent a epidural steroid injection into her laminar at the level of T9-T10. Since then, her pain control is improved considerably. She is more committed in using her incentive spirometer. She remains on 3 L of oxygen by nasal cannula with a pulse ox of 90%. Pain is improved. No new labs are available from today. The patient denies having any other new complaints for now. She is on Lovenox 30 mg subcu for DVT prophylaxis. The patient remains on l normal saline at rate of 75 cc an hour. She is on oxycodone 5 mg every 6 hours on a as needed basis, Robaxin 500 mg p.o. 3 times daily. No altered mentation. No other new complaints otherwise for now. 11/12/2024, patient is being seen for a follow-up. The patient is still on oxygen and she remains on 4 L with a pulse ox of 94%. She is trying to use incentive spirometer. A follow-up chest x-ray was done today and it showed some right lower lobe atelectatic changes. Otherwise, no other acute abnormalities. She is still complaining of pain involving the chest wall on the left post trauma/fall. The white cell count is 16.1. He was 12.9 with a platelet count of 223. BUN is 15 with a creatinine of 0.6. Sodium level is at 139. She is working with physical therapy and she was able to get out of bed today. Doing limited amount of activity. On 11/13/2024, the patient is grading her chest wall pain to be 8 out of 10. She is using the incentive spirometer. She was weaned down to 2 L of oxygen by nasal cannula and her current pulse ox is around 90%. Afebrile. Hemodynamically stable. She is still on DuoNeb nebulized treatments [id number]. IV fluids are currently in the form of normal saline at rate of 75 cc an hour. She was provided a nicotine patch. She is receiving oxycodone 5 mg every 6 hours for pain control and she also has a lidocaine patch and Robaxin. The blood work shows a white cell count of 13.7, hemoglobin is at 12.5. Platelet count is at 189. The most recent chest x-ray is from 11/12/2024 and it showed atelectatic changes in the right lung base otherwise no other acute abnormalities noted. Patient was seen today on 11/14/2024, still complaining of pain, she has intermittent cough, patient is supposed to have CT angiogram of the chest today. Labs showed leukocytosis WBC of 17.17 hemoglobin is 13.2 electrolytes are normal renal profile is normal D-dimer is elevated at 3.[address] angiogram was ordered by admitting physician. Seen today on 11/15/2024, patient is feeling better, breathing easier, CT angiogram of the chest showed no evidence of pulmonary embolism, it did show small left and trace right-sided pleural effusion with atelectasis and new reticular mosaic groundglass opacities in the right upper lobe could be related to pulmonary contusion. Findings are nonspecific. Patient does have subacute nondisplaced left-sided rib fractures involving the anterior left 5th, 6th and 7th ribs and left lateral eighth and posterior 9th and 10th ribs Objective - Vital Signs Vital signs: Vital Signs Temp 97.5 F L 11/15/24 12:55 Pulse 86 11/15/24 12:55 Resp 16 11/15/24 12:55 BP 98/64 11/15/24 12:55 Pulse Ox 96 11/15/24 12:55 FiO2 Intake & Output 11/14/24 11/15/24 11/15/24 18:59 06:59 18:59 Intake Total 500 150 240 Output Total 1050 2100 Balance -550 -1950 240 Weight 93 kg Intake: Intake, IV Titration 500 150 Amount Sodium Chloride 0.9% 1, 500 150 000 ml @ 75 mls/hr IV . [id number] [facility] Rx#:[id number] Oral 240 Output: Urine 1050 2100 Uretheral (Malik) 1050 Other: Voiding Method Indwelling Catheter Indwelling Catheter Indwelling Catheter # Bowel Movements 0 1 - Exam GENERAL EXAM: Alert, 69-year-old female, not in respiratory distress. On 6 L nasal cannula, O2 sat is 96% HEAD: Normocephalic and atraumatic EYES: Normal reaction of pupils, equal size. NOSE: Clear with pink turbinates. THROAT: No erythema or exudates. NECK: No masses, no JVD. CHEST: No chest wall deformity. No crepitus, subcutaneous emphysema. LUNGS: Equal air entry with no crackles, wheeze, rhonchi or dullness. No conversational dyspnea or accessory muscle use. Air entry is improved bilaterally and the patient is has ongoing soreness to palpation to her chest. ABDOMEN: No hepatosplenomegaly, active bowel sounds, no guarding or rigidity. SPINE: No scoliosis or deformity SKIN: No rashes CENTRAL NERVOUS SYSTEM: Alert oriented x 3 no focal deficit EXTREMITIES: No clubbing edema or cyanosis - Labs CBC & Chem 7: 11/15/24 10:22 11/15/24 10:22 Labs: Abnormal Lab Results - Last 24 Hours (Table) 11/14/24 11/14/24 11/15/24 Range/Units 16:49 20:55 10:22 WBC 12.61 H (4.50-10.00) 10*3/uL RBC 3.83 L (4.10-5.20) 10*6/uL Hct 36.7 L (37.2-46.3) % Immature Gran # 0.05 H (0.00-0.04) 10*3/uL Neutrophils # 9.21 H (1.80-7.70) 10*3/uL Carbon Dioxide (22-30) mmol/L Glucose (74-99) mg/dL POC Glucose (mg/dL) 113 H 168 H (70-110) mg/dL 11/15/24 11/15/24 Range/Units 10:22 11:26 WBC (4.50-10.00) 10*3/uL RBC (4.10-5.20) 10*6/uL Hct (37.2-46.3) % Immature Gran # (0.00-0.04) 10*3/uL Neutrophils # (1.80-7.70) 10*3/uL Carbon Dioxide 34 H (22-30) mmol/L Glucose 103 H (74-99) mg/dL POC Glucose (mg/dL) 167 H (70-110) mg/dL Assessment and Plan Assessment: Impression: Mechanical fall Minimally displaced rib fractures involving posterior left rib 9 and 10. No pneumothoraces, pleural effusions, possible pulmonary contusion Severe left-sided chest wall pain with muscle spasms secondary to above, improved post T9-10 epidural interlaminar steroid injection. Acute hypoxic respiratory failure related to shallow breathing pain related and atelectasis, currently on 6 L of oxygen by nasal cannula. Repeat chest x-ray shows atelectatic change in the right lung base from 11/11/2024. Acute dyspnea, secondary to above, improving Current ongoing tobacco smoker Elevated D-dimer with shortness of breath, CT angiogram, showed no evidence of pulmonary embolism Recommendations: Continue present supportive care measures Continue pain management Continue incentive spirometry Continue bronchodilators Continue physical therapy Reviewed CT angiogram of the chest Will continue to follow Time with Patient: Less than 30
--- NOTE | 2024-11-15 15:54 | P.PN ---
Subjective Progress Note Date: 11/15/24 Hospital Course: A 69-year-old female with PMH of Asthma/COPD, 43 pack year smoking history, se asonal allergies, diabetes mellitus, depression, GERD presents to the ED after a mechanical fall. Patient reports bathing her granddaughter, when she stood up to grab soap, she lost her footing landing on her left side. She immediately experienced 20/10 pain which resulted in a syncopal episode. Pain is worse with movement and deep inspiration. Reports SOB as a result of the pain. She denies any chest pain, dizziness, palpitations, fever or chills, cough, nausea or vomiting, changes in urination or bowel habits. No changes in appetite or weight. In the ED he underwent extensive evaluation. BP 100/67, HR 74, T 98.3F, RR 18, 91% on RA. Labs significant for WBC 14.05, glu 171, AST 56, ALT 47. EKG shows NSR. CT chest/abdomen/pelvis confirmed posterior left rib 9th and 10th fracture with 2 mm displacement. Patient is admitted to surgery with medicine on consult. Pain management consulted, underwent epidural nerve block on 11/11. Patient has been retaining urine, Malik catheter was placed. Patient noted to have a history of pelvic prolapse. Urology consulted, recommended to be discharged home with Malik catheter and follow-up in 2 weeks, patient does have history of prior self-catheterization. 11/12: Patient was seen and examined at bedside, she was sitting at the edge of the bed, getting ready to work with physical therapy. Noted significant pain in the rib cage, improved with pain medications, shortness of breath persisting. She is on 4 L nasal cannula today. Lab work showed leukocytosis 16.1. BMP stable 11/13: Seen and examined at bedside, patient gets up to use the bathroom, sit in the chair. States that her pain is not under control, remains on 3 L nasal cannula. Will continue current management, patient to be seen by pain medicine on Thursday. Complained of constipation, MiraLAX added, continued on docusate 11/14, overnight patient became more hypoxic and requiring more oxygen, was eventually placed on 4 or 5 L, now went up to 6 L. Repeat chest x-ray ordered this morning and showed increasing small bilateral pleural effusions, adjacent atelectasis. WBC up to 17.17, D-dimer ordered and came back elevated, CT chest ordered and showed no PE, shows small left and trace right-sided pleural effusions, new groundglass opacities in the right upper lobe, per pulmonology, could be related to pulmonary contusion. 11/15: Seen and examined at bedside, feels better, pain control is improving, less shortness of breath, WBC going down, BMP stable. Remains on 6 L nasal cannula Pertinent positives and negatives as discussed above, a complete review of systems was per, new groundglass opacities in the right upper lobeformed and all other systems are negative. Vitals Signs Reviewed. General: [nontoxic], [in respiratory distress Derm: [warm], [dry] Head: [atraumatic], [normocephalic], [symmetric] Eyes: [EOMI], [no lid lag], [anicteric sclera] Mouth: [no lip lesion], [mucus membranes moist] Cardiovascular: [S1S2 reg], [no murmur] Lungs: Decreased breath sounds bilaterally [no rhonchi, no rales] , [ accessory muscle use Abdominal: [soft], [ nontender to palpation], [no guarding], [no appreciable organomegaly], active bowel sounds Ext: [no gross muscle atrophy], [no edema], [no contractures] Neuro: [ CN II-XI grossly intact], [no focal neuro deficits] Psych: [Alert], [oriented], [appropriate affect] Assessment and Plan: Acute hypoxic respiratory failure secondary to 9th and 10th posterior left rib fracture Elevated D-dimer SIRS likely secondary to above -Pain management following, status post epidural nerve block on 11/11 -Pain management with Dilaudid 0.5 mg IV Q3H PRN, Toradol 15 mg IV Q6H PRN, Lidocaine patch, Robaxin 500 mg PO TID PRN, Oxy 5 mg PO Q6H PRN. -Pain is still poorly controlled, patient needs to follow-up with pain management hopefully tomorrow - Fall precautions -PT OT consulted -Encourage incentive spirometry -Pulmonary and surgery on board, appreciate recommendations -Wean of oxygen as tolerated Urinary retention Pelvic prolapse -Will be discharged with Malik catheter and follow-up with urology in 2 weeks -Neurology following, appreciate recommendations Constipation: Continue docusate twice daily, added MiraLAX 17 g daily Transaminitis: Outpatient follow-up Asthma/COPD not in acute exacerbation: Continue DuoNeb every 4 hours as needed 43 pack year smoking history: Nicotine patch 14 mg daily. Seasonal allergies: Singulair 10 mg PO QHS. Claritin 10 mg PO QD. Diabetes mellitus: ISS with Accuchecks ACHS along with hypoglycemic precautions. Obtain A1c. Depression: Fluoxetine 20 mg PO QD. GERD: Protonix 40 mg PO QD. I have reviewed the following employee relations consultant notes: Pulmonary, surgery I have reviewed the results of the following tests: I have ordered the following tests: CBC to monitor leukocytosis I have discussed the care of this patient with the following independent historian: RN, case management I have independently interpreted the following test below: As above I have discussed the management of this patient with the following physician: DVT ppx: Lovenox Code status: Full code Discharge place: Home with home care Discharge time: Probably in the next 48 hours pending oxygen requirement improvement Objective - Vital Signs Vital signs: Vital Signs Temp 97.5 F L 11/15/24 12:55 Pulse 86 11/15/24 12:55 Resp 16 11/15/24 12:55 BP 98/64 11/15/24 12:55 Pulse Ox 96 11/15/24 12:55 FiO2 Intake & Output 11/14/24 11/15/24 11/15/24 18:59 06:59 18:59 Intake Total 500 150 240 Output Total 1050 2100 Balance -550 -1950 240 Weight 93 kg Intake: Intake, IV Titration 500 150 Amount Sodium Chloride 0.9% 1, 500 150 000 ml @ 75 mls/hr IV . [id number] [facility] Rx#:[id number] Oral 240 Output: Urine 1050 2100 Uretheral (Malik) 1050 Other: Voiding Method Indwelling Catheter Indwelling Catheter Indwelling Catheter # Bowel Movements 0 1 - Labs CBC & Chem 7: 11/15/24 10:22 11/15/24 10:22 Labs: Abnormal Lab Results - Last 24 Hours (Table) 11/14/24 11/14/24 11/15/24 Range/Units 16:49 20:55 10:22 WBC 12.61 H (4.50-10.00) 10*3/uL RBC 3.83 L (4.10-5.20) 10*6/uL Hct 36.7 L (37.2-46.3) % Immature Gran # 0.05 H (0.00-0.04) 10*3/uL Neutrophils # 9.21 H (1.80-7.70) 10*3/uL Carbon Dioxide (22-30) mmol/L Glucose (74-99) mg/dL POC Glucose (mg/dL) 113 H 168 H (70-110) mg/dL 11/15/24 11/15/24 Range/Units 10:22 11:26 WBC (4.50-10.00) 10*3/uL RBC (4.10-5.20) 10*6/uL Hct (37.2-46.3) % Immature Gran # (0.00-0.04) 10*3/uL Neutrophils # (1.80-7.70) 10*3/uL Carbon Dioxide 34 H (22-30) mmol/L Glucose 103 H (74-99) mg/dL POC Glucose (mg/dL) 167 H (70-110) mg/dL
[2024-11-15 16:41] LABS: Glucose,Whole Blood 116 mg/dL (70-110)
[2024-11-15 20:32] LABS: Glucose,Whole Blood 165 mg/dL (70-110)
[2024-11-16 06:10] LABS: Glucose,Whole Blood 110 mg/dL (70-110)
[2024-11-16 07:18] LABS: Basophils # (A) 0.04 10*3/uL (0.00-0.10); Basophils % (A) 0.3 %; Eosinophils # (A) 0.34 10*3/uL (0.04-0.35); Eosinophils % (A) 2.5 %; HCT 36.1 % (37.2-46.3); Lymphocytes # (A) 2.96 10*3/uL (0.90-5.00); Lymphocytes % (A) 21.8 %; MCH 31.7 pg (27.0-32.0); MCHC 33.2 g/dL (32.0-37.0); MCV 95.3 fL (80.0-97.0); Mean Platelet Volume 10.3 fL (9.5-12.2); Monocytes % (A) 6.6 %; Neutrophils # (A) 9.27 10*3/uL (1.80-7.70); Neutrophils % (A) 68.3 %; Platelet Count 215 10*3/uL (140-440); RBC 3.79 10*6/uL (4.10-5.20); WBC 13.58 10*3/uL (4.50-10.00)
[2024-11-16 07:44] LABS: African American GFR (CKD) >90 (>60 ml/min/1.73 sqM); Anion Gap 6 mmol/L; Blood Urea Nitrogen 9 mg/dL (7-17); Carbon Dioxide 31 mmol/L (22-30); Chloride 104 mmol/L (98-107); Glucose 93 mg/dL (74-99); Non-African American GFR(CKD) >90 (>60 ml/min/1.73 sqM); Potassium 3.6 mmol/L (3.5-5.1); Sodium 141 mmol/L (137-145)
[2024-11-16 11:17] LABS: Glucose,Whole Blood 137 mg/dL (70-110)
[2024-11-16 11:52] VITALS: BP 115/70; RESP 20; TEMP 98
[2024-11-16 13:53] VITALS: PULSE 78
--- NOTE | 2024-11-16 13:56 | P.PN ---
Subjective Progress Note Date: 11/16/24 Principal diagnosis: Mechanical fall with minimally displaced rib fractures involving the left rib 9th and 10th. Patient is a 69-year-old female brought in by EMS following a slip and fall in the bathtub. She was giving her granddaughter a bath. Landed on her left chest. Denies head trauma. Denies anticoagulation. Endorses lateral chest tenderness/pain with moving or deep breathing. CT of the chest, abdomen, pelvis remarkable for minimally displaced fractures involving posterior left rib 9 and 10. No pneumothoraces, pleural effusions, contusions. Minimal bilateral peripheral atelectasis. Patient currently being evaluated in the emergency department. Having trouble taking deep breaths secondary to pain. Has received a dose of Dilaudid. Toradol is also ordered. On 2 L/min nasal cannula. SpO2 is 98% on monitor. Respiratory therapist showing her how to use her incentive spirometer. She denies any other injuries. Vital signs are stable. 11/10/2024, patient is being seen for a follow-up. The patient is still having pain and muscle spasms across her left chest. Pain management was consulted regarding the possibility of giving the patient e nerve block anesthetics and pain control. Otherwise, the patient remains on Dilaudid and she was also given oxycodone 5 mg every 6 hours on a as needed basis. She is also on Toradol 15 mg every 6 hours. She describes her pain to be 10 out of 10 and she is having difficulties using the incentive spirometer. Noted the patient had a fall with trauma to her left rib cage. She is also on a muscle relaxant. The white cell count is at 12.5 with a hemoglobin 13 and a platelet count of 202. Electrolytes are all within normal limits. On 11/11/2024, the patient seems to be much more comfortable. The patient underwent a epidural steroid injection into her laminar at the level of T9-T10. Since then, her pain control is improved considerably. She is more committed in using her incentive spirometer. She remains on 3 L of oxygen by nasal cannula with a pulse ox of 90%. Pain is improved. No new labs are available from today. The patient denies having any other new complaints for now. She is on Lovenox 30 mg subcu for DVT prophylaxis. The patient remains on l normal saline at rate of 75 cc an hour. She is on oxycodone 5 mg every 6 hours on a as needed basis, Robaxin 500 mg p.o. 3 times daily. No altered mentation. No other new complaints otherwise for now. 11/12/2024, patient is being seen for a follow-up. The patient is still on oxygen and she remains on 4 L with a pulse ox of 94%. She is trying to use incentive spirometer. A follow-up chest x-ray was done today and it showed some right lower lobe atelectatic changes. Otherwise, no other acute abnormalities. She is still complaining of pain involving the chest wall on the left post trauma/fall. The white cell count is 16.1. He was 12.9 with a platelet count of 223. BUN is 15 with a creatinine of 0.6. Sodium level is at 139. She is working with physical therapy and she was able to get out of bed today. Doing limited amount of activity. On 11/13/2024, the patient is grading her chest wall pain to be 8 out of 10. She is using the incentive spirometer. She was weaned down to 2 L of oxygen by nasal cannula and her current pulse ox is around 90%. Afebrile. Hemodynamically stable. She is still on DuoNeb nebulized treatments [id number]. IV fluids are currently in the form of normal saline at rate of 75 cc an hour. She was provided a nicotine patch. She is receiving oxycodone 5 mg every 6 hours for pain control and she also has a lidocaine patch and Robaxin. The blood work shows a white cell count of 13.7, hemoglobin is at 12.5. Platelet count is at 189. The most recent chest x-ray is from 11/12/2024 and it showed atelectatic changes in the right lung base otherwise no other acute abnormalities noted. Patient was seen today on 11/14/2024, still complaining of pain, she has intermittent cough, patient is supposed to have CT angiogram of the chest today. Labs showed leukocytosis WBC of 17.17 hemoglobin is 13.2 electrolytes are normal renal profile is normal D-dimer is elevated at 3.[address] angiogram was ordered by admitting physician. Seen today on 11/15/2024, patient is feeling better, breathing easier, CT angiogram of the chest showed no evidence of pulmonary embolism, it did show small left and trace right-sided pleural effusion with atelectasis and new reticular mosaic groundglass opacities in the right upper lobe could be related to pulmonary contusion. Findings are nonspecific. Patient does have subacute nondisplaced left-sided rib fractures involving the anterior left 5th, 6th and 7th ribs and left lateral eighth and posterior 9th and 10th ribs Seen today on 11/16/2024, patient is doing well, remains on oxygen, but she looks comfortable, not in any distress, pain is fairly well-controlled. Objective - Vital Signs Vital signs: Vital Signs Temp 98 F 11/16/24 11:52 Pulse 78 11/16/24 13:50 Resp 20 11/16/24 13:50 BP 115/70 11/16/24 11:52 Pulse Ox 96 11/16/24 11:52 FiO2 Intake & Output 11/15/24 11/16/24 11/16/24 18:59 06:59 18:59 Intake Total 1880 480 Output Total 875 2750 850 Balance 1005 -2750 -370 Intake: Intake, IV Titration 900 Amount Sodium Chloride 0.9% 1, 900 000 ml @ 75 mls/hr IV . [id number] [facility] Rx#:[id number] Oral 980 480 Output: Urine 875 2750 850 Other: Voiding Method Indwelling Catheter Indwelling Catheter Indwelling Catheter # Bowel Movements 0 - Exam GENERAL EXAM: Alert, 69-year-old female, not in respiratory distress. On 3 L nasal cannula with O2 sat of 96% HEAD: Normocephalic and atraumatic EYES: Normal reaction of pupils, equal size. NOSE: Clear with pink turbinates. THROAT: No erythema or exudates. NECK: No masses, no JVD. CHEST: No chest wall deformity. No crepitus, subcutaneous emphysema. LUNGS: Equal air entry with no crackles, wheeze, rhonchi or dullness. No conversational dyspnea or accessory muscle use. Air entry is improved bilaterally and the patient is has ongoing soreness to palpation to her chest. ABDOMEN: No hepatosplenomegaly, active bowel sounds, no guarding or rigidity. SPINE: No scoliosis or deformity SKIN: No rashes CENTRAL NERVOUS SYSTEM: Alert oriented x 3 no focal deficit EXTREMITIES: No clubbing edema or cyanosis - Labs CBC & Chem 7: 11/16/24 06:00 11/16/24 06:00 Labs: Abnormal Lab Results - Last 24 Hours (Table) 11/15/24 11/15/24 11/16/24 Range/Units 16:40 20:30 06:00 WBC 13.58 H (4.50-10.00) 10*3/uL RBC 3.79 L (4.10-5.20) 10*6/uL Hct 36.1 L (37.2-46.3) % Immature Gran # 0.07 H (0.00-0.04) 10*3/uL Neutrophils # 9.27 H (1.80-7.70) 10*3/uL Carbon Dioxide (22-30) mmol/L POC Glucose (mg/dL) 116 H 165 H (70-110) mg/dL 11/16/24 11/16/24 Range/Units 06:00 11:16 WBC (4.50-10.00) 10*3/uL RBC (4.10-5.20) 10*6/uL Hct (37.2-46.3) % Immature Gran # (0.00-0.04) 10*3/uL Neutrophils # (1.80-7.70) 10*3/uL Carbon Dioxide 31 H (22-30) mmol/L POC Glucose (mg/dL) 137 H (70-110) mg/dL Assessment and Plan Assessment: Impression: Mechanical fall Minimally displaced rib fractures involving posterior left rib 9 and 10. No pneumothoraces, pleural effusions, possible pulmonary contusion Severe left-sided chest wall pain with muscle spasms secondary to above, improved post T9-10 epidural interlaminar steroid injection. Acute hypoxic respiratory failure related to shallow breathing pain related and atelectasis, currently on 6 L of oxygen by nasal cannula. Repeat chest x-ray shows atelectatic change in the right lung base from 11/11/2024. Acute dyspnea, secondary to above, improving Current ongoing tobacco smoker Elevated D-dimer with shortness of breath, CT angiogram, showed no evidence of pulmonary embolism, findings on the CT of the chest are nonspecific Recommendations: Patient may need home O2 for the next week or 2 weeks, and this will be addressed on outpatient basis Continue present supportive care measures Continue pain management Continue incentive spirometry Continue bronchodilators Will clear the patient for discharge if cleared by other consultants Time with Patient: Less than 30
--- NOTE | 2024-11-16 14:17 | P.PN ---
Subjective Progress Note Date: 11/16/24 Hospital Course: A 69-year-old female with PMH of Asthma/COPD, 43 pack year smoking history, se asonal allergies, diabetes mellitus, depression, GERD presents to the ED after a mechanical fall. Patient reports bathing her granddaughter, when she stood up to grab soap, she lost her footing landing on her left side. She immediately experienced 20/10 pain which resulted in a syncopal episode. Pain is worse with movement and deep inspiration. Reports SOB as a result of the pain. She denies any chest pain, dizziness, palpitations, fever or chills, cough, nausea or vomiting, changes in urination or bowel habits. No changes in appetite or weight. In the ED he underwent extensive evaluation. BP 100/67, HR 74, T 98.3F, RR 18, 91% on RA. Labs significant for WBC 14.05, glu 171, AST 56, ALT 47. EKG shows NSR. CT chest/abdomen/pelvis confirmed posterior left rib 9th and 10th fracture with 2 mm displacement. Patient is admitted to surgery with medicine on consult. Pain management consulted, underwent epidural nerve block on 11/11. Patient has been retaining urine, Malik catheter was placed. Patient noted to have a history of pelvic prolapse. Urology consulted, recommended to be discharged home with Malik catheter and follow-up in 2 weeks, patient does have history of prior self-catheterization. 11/12: Patient was seen and examined at bedside, she was sitting at the edge of the bed, getting ready to work with physical therapy. Noted significant pain in the rib cage, improved with pain medications, shortness of breath persisting. She is on 4 L nasal cannula today. Lab work showed leukocytosis 16.1. BMP stable 11/13: Seen and examined at bedside, patient gets up to use the bathroom, sit in the chair. States that her pain is not under control, remains on 3 L nasal cannula. Will continue current management, patient to be seen by pain medicine on Thursday. Complained of constipation, MiraLAX added, continued on docusate 11/14, overnight patient became more hypoxic and requiring more oxygen, was eventually placed on 4 or 5 L, now went up to 6 L. Repeat chest x-ray ordered this morning and showed increasing small bilateral pleural effusions, adjacent atelectasis. WBC up to 17.17, D-dimer ordered and came back elevated, CT chest ordered and showed no PE, shows small left and trace right-sided pleural effusions, new groundglass opacities in the right upper lobe, per pulmonology, could be related to pulmonary contusion. 11/15: Seen and examined at bedside, feels better, pain control is improving, less shortness of breath, WBC going down, BMP stable. Remains on 6 L nasal cannula 11/16: Doing better, shortness of breath and pain improved significantly, stable for discharge from IM standpoint Pertinent positives and negatives as discussed above, a complete review of sy stems was per, new groundglass opacities in the right upper lobeformed and all other systems are negative. Vitals Signs Reviewed. General: [nontoxic], [in respiratory distress Derm: [warm], [dry] Head: [atraumatic], [normocephalic], [symmetric] Eyes: [EOMI], [no lid lag], [anicteric sclera] Mouth: [no lip lesion], [mucus membranes moist] Cardiovascular: [S1S2 reg], [no murmur] Lungs: Decreased breath sounds bilaterally [no rhonchi, no rales] , [ accessory muscle use Abdominal: [soft], [ nontender to palpation], [no guarding], [no appreciable organomegaly], active bowel sounds Ext: [no gross muscle atrophy], [no edema], [no contractures] Neuro: [ CN II-XI grossly intact], [no focal neuro deficits] Psych: [Alert], [oriented], [appropriate affect] Assessment and Plan: Acute hypoxic respiratory failure secondary to 9th and 10th posterior left rib fracture Elevated D-dimer SIRS likely secondary to above -Pain management following, status post epidural nerve block on 11/11 -Pain management with Dilaudid 0.5 mg IV Q3H PRN, Toradol 15 mg IV Q6H PRN, Lidocaine patch, Robaxin 500 mg PO TID PRN, Oxy 5 mg PO Q6H PRN. -Pain is still poorly controlled, patient needs to follow-up with pain management hopefully tomorrow - Fall precautions -PT OT consulted -Encourage incentive spirometry -Pulmonary and surgery on board, appreciate recommendations -Wean of oxygen as tolerated Urinary retention Pelvic prolapse -Will be discharged with Malik catheter and follow-up with urology in 2 weeks -Neurology following, appreciate recommendations Constipation: Continue docusate twice daily, added MiraLAX 17 g daily Transaminitis: Outpatient follow-up Asthma/COPD not in acute exacerbation: Continue DuoNeb every 4 hours as needed 43 pack year smoking history: Nicotine patch 14 mg daily. Seasonal allergies: Singulair 10 mg PO QHS. Claritin 10 mg PO QD. Diabetes mellitus: ISS with Accuchecks ACHS along with hypoglycemic precautions. Obtain A1c. Depression: Fluoxetine 20 mg PO QD. GERD: Protonix 40 mg PO QD. I have reviewed the following solution consultant notes: Pulmonary, surgery I have reviewed the results of the following tests: I have ordered the following tests: I have discussed the care of this patient with the following independent historian: RN, case management I have independently interpreted the following test below: As above I have discussed the management of this patient with the following physician: Surgery DVT ppx: Lovenox Objective - Vital Signs Vital signs: Vital Signs Temp 98 F 11/16/24 11:52 Pulse 78 11/16/24 13:50 Resp 20 11/16/24 13:50 BP 115/70 11/16/24 11:52 Pulse Ox 96 11/16/24 11:52 FiO2 Intake & Output 11/15/24 11/16/24 11/16/24 18:59 06:59 18:59 Intake Total 1880 480 Output Total 875 2750 850 Balance 1005 -2750 -370 Intake: Intake, IV Titration 900 Amount Sodium Chloride 0.9% 1, 900 000 ml @ 75 mls/hr IV . [id number] [facility] Rx#:[id number] Oral 980 480 Output: Urine 875 2750 850 Other: Voiding Method Indwelling Catheter Indwelling Catheter Indwelling Catheter # Bowel Movements 0 - Labs CBC & Chem 7: 11/16/24 06:00 11/16/24 06:00 Labs: Abnormal Lab Results - Last 24 Hours (Table) 11/15/24 11/15/24 11/16/24 Range/Units 16:40 20:30 06:00 WBC 13.58 H (4.50-10.00) 10*3/uL RBC 3.79 L (4.10-5.20) 10*6/uL Hct 36.1 L (37.2-46.3) % Immature Gran # 0.07 H (0.00-0.04) 10*3/uL Neutrophils # 9.27 H (1.80-7.70) 10*3/uL Carbon Dioxide (22-30) mmol/L POC Glucose (mg/dL) 116 H 165 H (70-110) mg/dL 11/16/24 11/16/24 Range/Units 06:00 11:16 WBC (4.50-10.00) 10*3/uL RBC (4.10-5.20) 10*6/uL Hct (37.2-46.3) % Immature Gran # (0.00-0.04) 10*3/uL Neutrophils # (1.80-7.70) 10*3/uL Carbon Dioxide 31 H (22-30) mmol/L POC Glucose (mg/dL) 137 H (70-110) mg/dL
--- NOTE | 2024-11-16 14:19 | P.DS ---
Providers Date of admission: 11/09/24 00:48 Expected date of discharge: 11/16/24 Attending physician: David Peng DO Consults: 11/09/24 00:48 Consult Physician Routine Consulting Provider: [facility] Consult Reason/Comments: Pulmonary Contusion Do you want consulting provider notified?: Yes 11/09/24 08:26 Consult Physician Routine Consulting Provider: Virgilio Barrett Consult Reason/Comments: medical management Do you want consulting provider notified?: Yes 11/11/24 12:38 Consult Physician Routine Consulting Provider: Gus Mccurdy Consult Reason/Comments: urinary retention, h/o bladder prolapse Do you want consulting provider notified?: Yes Primary care physician: Dillan Rodríguez [facility] Hospital Course: Discharge diagnosis 1. Mechanical fall with trauma to the left rib cage 2. Fracture of Posterior left rib #9 and 10 due to fall 3. History of COPD 4. Right lung pulmonary contusion Hospital course This is a 69-year-old female who presents to the ER after a fall in her bathtub. Patient hit the left side of her chest against the side of the tub. CT scan of chest abdomen pelvis were completed showed evidence of fracture of posterior left rib #9 and 10 with maximal 2 mm displacement. Patient seen by pain service and received an epidural pain injection. Patient had increased oxygen demand and had a CTA of the chest completed no evidence of PE. Did report new groundglass opacities within the right upper lung concerning for atypical pneumonia. And redemonstration of the left-sided rib fractures. Patient was followed closely by pulmonary service and medical team. Also evaluated by urology. They recommend the patient is discharged home with the Malik catheter. Patient's pain is controlled. She has been up and ambulating and worked with physical therapy. She has been cleared by consulting physicians for discharge. Her pain is controlled. She is afebrile. She is tolerating diet. Patient does require home oxygen at discharge. Her oxygen saturation is at 87% on room air. She is stable for discharge. Please refer to chart for any further details. Physician Dredge Captain note has been reviewed by physician. Signing provider agrees with the documented findings, assessment, and plan of care. Attestation Pt seen and examined at bedside. Throughout admission she did improve with improvement in SOB. She is requiring home O2. F/u as outpt with urology for chronic issues. F/u with pulm. Stable from trauma standpoint for DC. Patient Condition at Discharge: Stable Plan - Discharge Summary Discharge Rx Participant: No New Discharge Prescriptions: New Lidocaine 5% Patch [Lidoderm] 1 patch TOPICAL DAILY #7 patch methocarbamoL [Robaxin] 500 mg PO TID PRN #9 tab PRN Reason: Muscle Pain Docusate [Colace] 100 mg PO BID #30 capsule Ibuprofen [Motrin] 600 mg PO Q8HR PRN #30 tab PRN Reason: Pain oxyCODONE HCL [oxyCODONE HCL (IR)] 5 mg PO Q6H PRN 3 Days #12 cap PRN Reason: Pain guaiFENesin [Mucinex] 1,200 mg PO Q12HR PRN #20 tab PRN Reason: Congestion Continue Omeprazole [PriLOSEC] 20 mg PO DAILY Empagliflozin [Jardiance] 25 mg PO DAILY Montelukast [Singulair] 10 mg PO HS Estradiol Cream [Estrace Cream 0.01%] 1 gm VAGINAL DIRECTED [place]-3/Dha/Epa/Fish Oil [Fish Oil 1,000 mg Softgel] 1 cap PO DAILY Multivitamins, Thera [Multivitamin (formulary)] 1 tab PO DAILY Loratadine [Claritin] 10 mg PO HS Semaglutide [Ozempic] 2 mg SQ FR FLUoxetine HCL [Sarafem] 20 mg PO DAILY Discharge Medication List Omeprazole [PriLOSEC] 20 mg PO DAILY 12/01/14 [History] Empagliflozin [Jardiance] 25 mg PO DAILY 11/09/24 [History] Estradiol Cream [Estrace Cream 0.01%] 1 gm VAGINAL DIRECTED 11/09/24 [History] FLUoxetine HCL [Sarafem] 20 mg PO DAILY 11/09/24 [History] Loratadine [Claritin] 10 mg PO HS 11/09/24 [History] Montelukast [Singulair] 10 mg PO HS 11/09/24 [History] Multivitamins, Thera [Multivitamin (formulary)] 1 tab PO DAILY 11/09/24 [History] [place]-3/Dha/Epa/Fish Oil [Fish Oil 1,000 mg Softgel] 1 cap PO DAILY 11/09/24 [History] Semaglutide [Ozempic] 2 mg SQ FR 11/09/24 [History] Docusate [Colace] 100 mg PO BID #30 capsule 11/16/24 [Rx] Ibuprofen [Motrin] 600 mg PO Q8HR PRN #30 tab 11/16/24 [Rx] Lidocaine 5% Patch [Lidoderm] 1 patch TOPICAL DAILY #7 patch 11/16/24 [Rx] guaiFENesin [Mucinex] 1,200 mg PO Q12HR PRN #20 tab 11/16/24 [Rx] methocarbamoL [Robaxin] 500 mg PO TID PRN #9 tab 11/16/24 [Rx] oxyCODONE HCL [oxyCODONE HCL (IR)] 5 mg PO Q6H PRN 3 Days #12 cap 11/16/24 [Rx] Follow up Appointment(s)/Referral(s): Laura Moore MD [STAFF PHYSICIAN] - 1 Week Gus Mccurdy MD [STAFF PHYSICIAN] - 2 Weeks (plan to remove IDC and start self catheterization at this visit) [facility] [NON-STAFF] - Dillan Díaz MD [Primary Care Provider] - 1-2 days Miranda Hooper DO [Doctor of Osteopathic Medicine] - 1 Week Activity/Diet/Wound Care/Special Instructions: Patient to be discharged with Malik catheter leg bag Encourage patient to continue to use incentive spirometer Activity as tolerated Discharge/Stand Alone Forms: Anes Pain/Wismer Instructions Discharge Disposition: HOME WITH HOME HEALTH SERVICES
[2024-11-16 14:27] VITALS: BMI 33.0
== END 2024-11-16 15:38 | disposition home health service (06) | DRG 183 ==
LOC: EC 21:40 → 3SCARD 11-09 00:48 → OBSVTOIN 11-09 00:48 → 3SCARD 11-09 16:35
PROVIDERS: ADMIT Surgery; ATTEND Surgery
PROC: 3E0R33Z Introduction of Anti-inflammatory into Spinal Canal, Percutaneous Approach (ICD-10-PCS; principal; 2024-11-11 11:30)
DX: S22.42XA Multiple fractures of ribs, left side, initial encounter for closed fracture (principal); J96.01 Acute respiratory failure with hypoxia; I95.9 Hypotension, unspecified; E11.9 Type 2 diabetes mellitus without complications; F32.A Depression, unspecified; D72.829 Elevated white blood cell count, unspecified; J44.89 Other specified chronic obstructive pulmonary disease; R65.10 Systemic inflammatory response syndrome (SIRS) of non-infectious origin without acute organ dysfunction; J98.11 Atelectasis; J30.2 Other seasonal allergic rhinitis; M47.814 Spondylosis without myelopathy or radiculopathy, thoracic region; N99.3 Prolapse of vaginal vault after hysterectomy; W18.2XXA Fall in (into) shower or empty bathtub, initial encounter; R33.8 Other retention of urine; M62.838 Other muscle spasm; Y92.002 Bathroom of unspecified non-institutional (private) residence as the place of occurrence of the external cause; R74.01 Elevation of levels of liver transaminase levels; Y93.E1 Activity, personal bathing and showering; K21.9 Gastro-esophageal reflux disease without esophagitis; K59.00 Constipation, unspecified; Z79.82 Long term (current) use of aspirin; Z79.84 Long term (current) use of oral hypoglycemic drugs; Z85.820 Personal history of malignant melanoma of skin; Z79.899 Other long term (current) drug therapy; Z88.5 Allergy status to narcotic agent
CPT/HCPCS: 36415; 62321; 71045; 71250; 71275; 74176; 80048; 80053; 81001; 83036; 84484; 85025; 85379; 85610; 85730; 87086; 93005; 94640; 94760; 96361; 96372; 96374; 96375; 96376; 99285